=== PATIENT | female | born 1955 | race Caucasian/White ===

== ENCOUNTER 2020-01-26 17:08 | Inpatient (IN) | payer MEDICARE, SELFPAY ==
--- NOTE | 2020-01-26 | CT_ITS ---
EXAMINATION: CT HEAD WITH/WITHOUT CONTRAST CLINICAL INFORMATION: Altered mental status COMPARISON: CT head 10/14/2008 TECHNIQUE: Contiguous axial imaging was performed from the skull base to vertex before and after the administration of 85 mL of Omnipaque [address] examination was performed using dose optimization techniques as appropriate, variously including the following: *Automated exposure control *Adjustment of mA and/or kV according to patient size (this includes techniques or standardized protocols for targeted exams where dose is matched to indication/reason for exam; i.e. extremities or head) *Use of iterative reconstruction technique DLP: 812.43+812.43 mGy-cm FINDINGS: There is no evidence of acute intracranial hemorrhage or territorial infarction. No abnormal mass effect or midline shift is seen. Montes to white matter differentiation is well preserved. No extra-axial fluid collections are identified. There is no abnormal enhancement. The ventricles are normal in size. There is no abnormal attenuation within the brain parenchyma. The osseous structures and soft tissues are normal. The mastoid air cells and visualized portions of the paranasal sinuses are well aerated. IMPRESSION: No acute intracranial pathology.
--- NOTE | 2020-01-26 | CT_ITS ---
EXAMINATION: CT CHEST WITH CONTRAST CLINICAL INFORMATION: Weight loss. Smoker. Altered mental status. COMPARISON: None TECHNIQUE: Multidetector volumetric CT imaging of the chest was obtained after the administration of 85 mL of Omnipaque 350 intravenous contrast without immediate adverse reactions. Axial MIP volume rendering provided. Sagittal and coronal reformatted images were obtained. This CT examination was performed using dose optimization techniques as appropriate, variously including the following: *Automated exposure control *Adjustment of mA and/or kV according to patient size (this includes techniques or standardized protocols for targeted exams where dose is matched to indication/reason for exam; i.e. extremities or head) *Use of iterative reconstruction technique DLP: 193.37 mGy-cm FINDINGS: LUNGS: Moderate centrilobular emphysematous change of lungs mostly affecting the upper lobes. There is mild bronchiectasis and architectural distortion primarily affecting the upper lobes. There is no acute infiltrate. No interstitial or groundglass opacity. No suspicious lesion or nodule. MEDIASTINUM: There is no mediastinal mass or significant lymphadenopathy. There is a small volume of vascular calcifications of aorta. No aneurysm or dissection of aorta. The heart size is normal. There is no pericardial effusion. Central pulmonary arteries well opacified with no evidence of central pulmonary emboli. PLEURA: There is no pleural effusion. No pleural mass or thickening. AXILLA: No lymphadenopathy. UPPER ABDOMEN: Degenerative glands are normal. Mild low-attenuation of liver parenchyma due to fatty change. No focal lesions in the visualized portions of liver, spleen, pancreas or kidneys. OSSEOUS STRUCTURES: Unremarkable. IMPRESSION: No acute abnormality of the chest. There is moderate emphysematous change of lungs.
--- NOTE | 2020-01-26 | ECG_ITS ---
Test Reason : AMS Blood Pressure : / mmHG Vent. 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 rate has decreased BY [address] now depressed in Anterior leads T wave inversion now evident in Anterolateral leads Referred By: Mario Kohler Electronically Signed By:ZACH LAWTON
[2020-01-26 17:18] VITALS: BP 147/65; PULSE 61; RESP 14; TEMP 36.9; O2SAT 95; BMI 21.3
--- NOTE | 2020-01-26 17:44 | ED.AMS ---
HPI - Altered Mental Status General Chief Complaint: Altered Mental Status <Lili Theodore NP - Last Filed: 01/27/20 02:22> Stated Complaint: ams <Lili Theodore NP - Last Filed: 01/27/20 02:22> Time Seen by Provider: 01/26/20 17:27 <Lili Theodore NP - Last Filed: 01/27/20 02:22> Source: family <Lili Theodore NP - Last Filed: 01/27/20 02:22> Mode of arrival: ambulatory <Lili Theodore NP - Last Filed: 01/27/20 02:22> Limitations: altered mental status <Lili Theodore NP - Last Filed: 01/27/20 02:22> History of Present Illness HPI narrative: 64-year-old female presents with her granddaughter for altered mental status. Granddaughter states that over the past week patient has forgotten where she lives, tries to go outside to use the restroom, has lost weight recently but always has been small. Granddaughter had noted that patient's daily habits have changed, patient drinks Coca-Cola every day for decades and over the past week patient told granddaughter she has never had Coca-Cola Before. Patient is a very heavy smoker 2-3 packs per day for many years, has not been taking her medications on a regular basis, and is answering questions politely but not accurately. Patient does not describe any chest pain or pressure, palpitations, shortness breath, abdominal pain, abdominal distention, dysuria, hematuria, dizziness, lightheadedness, nausea, vomiting, fevers or chills. <Lili Theodore NP - Last Filed: 01/27/20 02:22> Related Data Home Medications: Home Medications Medication Instructions Recorded Confirmed albuterol sulfate [Ventolin HFA] 2 puff INHALATION QID PRN 01/27/20 01/27/20 clonazepam 0.5 mg PO TID 01/27/20 01/27/20 clotrimazole-betamethasone 1 applic TOPICAL BID 01/27/20 01/27/20 [Lotrisone] diltiazem HCl 300 mg PO DAILY 01/27/20 01/27/20 fluoxetine 20 mg PO DAILY 01/27/20 01/27/20 fluticasone propionate [Flonase] 2 spray INTRANASAL DAILY 01/27/20 01/27/20 gemfibrozil 600 mg PO DAILY 01/27/20 01/27/20 naloxone 4 mg INTRANASAL Q2M PRN 01/27/20 01/27/20 nitroglycerin 0.4 mg SUBLINGUAL Q5M PRN 01/27/20 01/27/20 omeprazole 20 mg PO DAILY 01/27/20 01/27/20 oxycodone 15 mg PO 5XD PRN 01/27/20 01/27/20 pravastatin 80 mg PO DAILY 01/27/20 01/27/20 <Lili Theodore NP - Last Filed: 01/27/20 02:22> Allergies/Adverse Reactions: Allergies Allergy/AdvReac Type Severity Reaction Status Date / Time No Known Allergies Allergy Unverified 01/09/20 15:37 [No Known Allergies*] <KRYSTIN Salcedo Last Filed: 01/27/20 02:22> Review of Systems Review of Systems: Yes all other systems are reviewed and are negative <Lili Theodore NP - Last Filed: 01/27/20 02:22> Constitutional: Constitutional: Denies chills, Denies frequent falls, Denies headache(s), Reports lethargy, Reports malaise, Denies night sweats and Reports poor appetite <KRYSTIN Salcedo Last Filed: 01/27/20 02:22> Eyes: Eyes: Denies blurry vision and Denies other visual disturbances <Lili Theodore NP - Last Filed: 01/27/20 02:22> ENT: Reports system reviewed and no additional complaints, except as documented and Denies headache(s) <Lili Theodore NP - Last Filed: 01/27/20 02:22> Cardiovascular: Cardiovascular: Reports no additional cardiovascular complaints, Denies chest pain, Denies chest pain at rest, Denies chest pain with activity, Denies diaphoresis, Denies irregular heart rhythm and Denies dyspnea <KRYSTIN Salcedo Last Filed: 01/27/20 02:22> Respiratory: Respiratory: Denies chest congestion, Reports cough, Denies pain on inspiration, Denies dyspnea, Denies stridor and Reports wheezing <Candy Ewelina, DIRECTOR IT PROJECT - Last Filed: 01/27/20 02:22> Gastrointestinal: Gastrointestinal: Reports no additional gastrointestinal complaints, Denies melena, Denies diarrhea, Denies nausea and Denies vomiting <Candy Eweilna, DIRECTOR [employer] PROJECT - Last Filed: 01/27/20 02:22> Genitourinary: Genitourinary: Reports no additional female genitourinary complaints <Candy Ewelina, DIRECTOR IT PROJECT - Last Filed: 01/27/20 02:22> Musculoskeletal: Musculoskeletal: Reports no additional musculoskeletal complaints <Candy Ewelina, DIRECTOR [employer] PROJECT - Last Filed: 01/27/20 02:22> Integumentary/Breasts: Skin/Breast: Reports system reviewed and no additional complaints, except as docu <Candy Ewelina, DIRECTOR [employer] PROJECT - Last Filed: 01/27/20 02:22> Neurologic: Reports behavioral changes, Reports confusion, Denies frequent falls, Denies headache(s) and Reports memory loss <Candy Ewelina, DIRECTOR [employer] PRO[employer] - Last Filed: 01/27/20 02:22> Psychiatric: Psychiatric: Reports behavioral changes, Reports confusion and Reports memory loss <Candy Ewelina, DIRECTOR [employer] PRO[employer] - Last Filed: 01/27/20 02:22> Endocrine: Endocrine: Reports no additional endocrine complaints <Candy Ewelina, DIRECTOR [employer] PRO[employer] - Last Filed: 01/27/20 02:22> Hematologic/Lymphatic: Hematologic/Lymphatic: Reports no additional hematologic/lymphatic complaints <Candy Ewelina, DIRECTOR IT PROJECT - Last Filed: 01/27/20 02:22> Allergic/Immunologic: Allergic/Immunologic: Reports wheezing <Candy Ewelina, DIRECTOR IT PROJECT - Last Filed: 01/27/20 02:22> [facility] Past Medical History Medical History: Medical History Anxiety COPD (chronic obstructive pulmonary disease) Hyperlipidemia Hypertension Opiate abuse, continuous <Candy Ewelina, DIRECTOR [employer] PRO[employer] - Last Filed: 01/27/20 02:22> Social History Social History: Social History Alcohol intake: never Smoking Status: Current every day smoker Tobacco Type: Cigarette Smoked in Last 30 Days: Yes Patient Interested in Nicotine Replacement: No Patient Given Instructions on How to Stop Smoking: No Second Hand Smoke Exposure: No Use of substances other than those prescribed or required for medical reasons: No Advance Directives: No Advance Directives Information Provided: Yes Advance Directives on File: No service: No Current occupational status: unemployed <Lili Theodore NP - Last Filed: 01/27/20 02:22> Physical Exam Vital Signs and I&O and Narrative: Vital Signs and I&O: Vital Signs Temp 97.2 F 01/27/20 19:48 Pulse 62 01/27/20 19:48 Resp 18 01/27/20 19:48 BP 154/87 H 01/27/20 19:48 Pulse Ox 97 01/27/20 19:48 Body Mass Index 21.3 <Lili Theodore NP - Last Filed: 01/27/20 02:22> Vital Signs and I&O: Vital Signs Temp 97.2 F 01/27/20 19:48 Pulse 62 01/27/20 19:48 Resp 18 01/27/20 19:48 BP 154/87 H 01/27/20 19:48 Pulse Ox 97 01/27/20 19:48 Body Mass Index 21.3 <Orion Marvin DO - Last Filed: 01/27/20 20:25> Const: General: cooperative, no acute distress, alert, awake, Physically active and confusion <Lili Theodore NP - Last Filed: 01/27/20 02:22> Nutritional Appearance: underweight <Lili Theodore NP - Last Filed: 01/27/20 02:22> Orientation/consciousness: oriented to person and confusion <Lili Theodore NP - Last Filed: 01/27/20 02:22> HENMT: Head: Yes normal to inspection <Lili Theodore NP - Last Filed: 01/27/20 02:22> Ears: hearing grossly normal bilaterally <Lili Theodore NP - Last Filed: 01/27/20 02:22> General nose exam: Normal external nose present <Lili Theodore NP - Last Filed: 01/27/20 02:22> Face and sinus: Yes normal facial exam <Lili Theodore NP - Last Filed: 01/27/20 02:22> Mouth: Normal oral and palatal mucosa present <Lili Theodore DIRECTOR [employer] PRO[employer] - Last Filed: 01/27/20 02:22> Teeth and gingiva: other ( No dentition) <Lili Theodore DIRECTOR [employer] PRO[employer] - Last Filed: 01/27/20 02:22> Throat: Yes posterior oropharynx normal <Lili Theodore DIRECTOR [employer] PRO[employer] - Last Filed: 01/27/20 02:22> Eyes: General: appearance normal, both eyes and all related structures <Lili Theodore DIRECTOR [employer] PRO[employer] - Last Filed: 01/27/20 02:22> Eyelids: Yes eyelids normal <Lili Theodore DIRECTOR [employer] - Last Filed: 01/27/20 02:22> Conjunctivae: conjunctivae normal <Lili Theodore DIRECTOR [employer] PRO[employer] - Last Filed: 01/27/20 02:22> Sclerae: sclerae normal <Lili Theodore DIRECTOR [employer] PRO[employer] - Last Filed: 01/27/20 02:22> Corneas: corneas normal <Lili Theodore DIRECTOR [employer] PRO[employer] - Last Filed: 01/27/20 02:22> Pupils: Equal, round and reactive pupils present <Lili Theodore DIRECTOR [employer] - Last Filed: 01/27/20 02:22> EOM: EOMs intact bilaterally <Lili Theodore DIRECTOR [employer] - Last Filed: 01/27/20 02:22> Neck: Neck: Yes normal visual inspection, Yes full ROM, Yes no lymphadenopathy, Yes no meningeal signs, Yes trachea midline and Yes supple <Lili Theodore DIRECTOR [employer] - Last Filed: 01/27/20 02:22> Chest: Chest palpation & inspection: normal inspection of the chest <Lili Theodore DIRECTOR [employer] - Last Filed: 01/27/20 02:22> Resp: Effort & Inspection: normal respiratory effort, able to speak in complete sentences, audible wheezes and Actively coughing ( consistent with smoker) <Lili Theodore DIRECTOR [employer] - Last Filed: 01/27/20 02:22> Cardio: Jugular venous distension: no JVD <Lili Theodore DIRECTOR [employer] PRO[employer] - Last Filed: 01/27/20 02:22> Rate: regular rate <Lili Theodore DIRECTOR [employer] PROJECT - Last Filed: 01/27/20 02:22> Rhythm: regular rhythm <Lili Theodore DIRECTOR IT PROJECT - Last Filed: 01/27/20 02:22> Heart sounds: S1 normal heart sound present and S2 normal heart sound present <Lili Theodore NP - Last Filed: 01/27/20 02:22> Peripheral pulses: Peripheral pulses 2+ throughout <Lili Theodore DIRECTOR [employer] PRO[employer] - Last Filed: 01/27/20 02:22> GI: Inspection: Yes normal to inspection <Lili Theodore DIRECTOR [employer] PRO[employer] - Last Filed: 01/27/20 02:22> Auscultation: normal bowel sounds <Lili Theodore DIRECTOR IT PROJECT - Last Filed: 01/27/20 02:22> Rectal Exam - Female: deferred <Lili Theodore DIRECTOR [employer] PRO[employer] - Last Filed: 01/27/20 02:22> : General: Yes no CVA tenderness <Lili Theodore DIRECTOR IT PRO[employer] - Last Filed: 01/27/20 02:22> Back/Spine/Pelvis: Back: no CVA tenderness <Lili Theodore NP - Last Filed: 01/27/20 02:22> Thoracic/Lumbar Spine: thoracic and lumbar spine normal to inspection <Lili Theodore DIRECTOR IT PRO[employer] - Last Filed: 01/27/20 02:22> Skin: General skin exam: no rashes or lesions noted <Lili Theodore DIRECTOR IT PROJECT - Last Filed: 01/27/20 02:22> Neuro: General: oriented to person, gait normal, moves all extremities, no meningeal signs and confusion <Lili Theodore DIRECTOR [employer] PROJECT - Last Filed: 01/27/20 02:22> Cranial nerves: Yes CN's II-XII intact bilaterally, Yes Facial sensation intact/muscles of mastication intact, Yes Intact sense of smell present, Yes Equal, round and reactive pupils present, Yes Bilaterally intact EOM present, Yes Nystagmus not present and Yes Midline tongue present <Lili Theodore DIRECTOR IT PRO[employer] - Last Filed: 01/27/20 02:22> Gait exam (Neuro): Normal gait present <Lili Theodore NP - Last Filed: 01/27/20 02:22> Motor exam (neuro): 5/5 motor strength present throughout <Lili Theodore DIRECTOR IT PRO[employer] - Last Filed: 01/27/20 02:22> Extrem: General: Yes normal to inspection <Lili TheodoreKRYSTIN - Last Filed: 01/27/20 02:22> Psych: Appearance: grossly normal and well kempt <Lili TheodoreKRYSTIN - Last Filed: 01/27/20 02:22> Speech and movement: Normal speech and movement present <Lili TheodoreKRYSTIN - Last Filed: 01/27/20 02:22> Affect: normal affect <Lili TheodoreKRYSTIN - Last Filed: 01/27/20 02:22> Attitude: cooperative <Lili TheodoreKRYSTIN - Last Filed: 01/27/20 02:22> Course Reevaluation(s) Reevaluation #1: CBC is within normal limits, chemistries shows hypokalemia at 3.0, we will replete with Klor-Con 40 mEq. <Lili TheodoreKRYSTIN - Last Filed: 01/27/20 02:22> Time: 18:51 <Lili TheodoreKRYSTIN - Last Filed: 01/27/20 02:22> Reevaluation #2: EKG earlier shows T-wave abnormalities, after potassium repletion we did repeat the EKG which shows sinus Johnson at 55 beats per minute T-wave changes are not as evident. We will repeat BMP and troponin. This case was discussed with Dr. Jaxson Kohler. Patient will be admitted for observation. <Lili TheodoreKRYSTIN - Last Filed: 01/27/20 02:22> Time: 22:35 <Lili TheodoreKRYSTIN - Last Filed: 01/27/20 02:22> MDM - Altered Mental Status Lab Data Result diagrams: : 01/26/20 18:11 01/26/20 22:40 <Lili TheodoreKRYSTIN - Last Filed: 01/27/20 02:22> Labs: Lab Results 01/26/20 01/26/20 01/26/20 Range/Units 18:11 18:11 18:11 WBC 10.2 (4.8-10.8) X10*3/uL RBC 4.36 (4.20-5.50) X10*6/uL Hgb 13.3 (12.0-16.0) g/dl Hct 39.9 (37-47) % MCV 91.5 (80-98) fL MCH 30.5 (27.0-33.0) pg MCHC 33.3 (31.0-35.0) g/dl RDW 12.8 (11.0-16.0) % Plt Count 332 (160-400) X10*3/uL MPV 9.1 L (9.4-12.3) fL Immature Gran % (Auto) 0.2 (0.0-0.4) % Neut % (Auto) 68.9 (45-73) % Lymph % (Auto) 23.5 (20-40) % [place] % (Auto) 7.0 (2-11) % Eos % (Auto) 0.2 (0-4) % Baso % (Auto) 0.2 (0-2) % Neut # (Auto) 7.1 (2.0-8.3) X10*3/uL Lymph # (Auto) 2.4 (1.2-4.9) X10*3/uL [place] # (Auto) 0.7 (0.1-1.2) X10*3/uL Eos # (Auto) 0.0 (0.0-0.4) X10*3/uL Baso # (Auto) 0.0 (0.0-0.2) X10*3/uL Abs Immat Gran (auto) 0.02 (0.00-0.03) X10*3/uL Absolute Nucleated RBC 0.000 (0.0-0.012) X10*3/uL Nucleated RBC % (auto) 0.0 (0.0-0.2) /100WBC PT (10.8-13.0) SEC INR (0.9-1.1) Sodium 139 (135-145) mmol/L Potassium 3.0 L (3.3-5.1) mmol/l Chloride 107 (96-108) mmol/L Carbon Dioxide 24 (22-29) mmol/L Anion Gap 11 L (12-20) BUN 9 (9-16) mg/dL Creatinine 0.64 (0.5-1.4) mg/dL Estim Creat Clear Calc 65.5 Estimated GFR > 60 POC Glucose (60-115) mg/dL Random Glucose 102 (60-115) mg/dL Lactic Acid 0.7 (0.5-2.0) mmol/L Calcium 9.2 (8.4-10.2) mg/dL Total Bilirubin (0.0-1.0) mg/dL Direct Bilirubin (0.0-0.5) mg/dL AST (5-31) U/L ALT (0-31) U/L Alkaline Phosphatase (39-117) U/L Troponin I High Sens (<3.5-17.0) ng/L Total Protein (6.5-8.0) g/dL Albumin (3.5-5.0) g/dL Vitamin B12 (200-900) pg/mL Folate (> or = 4.0) ng/mL TSH (0.32-4.0) mIU/mL Urine Color Urine Appearance Urine pH (5.0-8.0) Ur Specific Bracey (1.005-1.025) Urine Protein (NEG-TRACE) MG/DL Urine Glucose (UA) (NEG) MG/DL Urine Ketones (NEG) MG/DL Urine Blood (NEG) Urine Nitrite (NEG) Ur Leukocyte Esterase (NEG) Salicylates < 5.0 L (15-30) mg/dL Urine Opiates Screen (Not Detect) Acetaminophen (<30) mcg/mL Ur Barbiturates Screen (Not Detect) Ur Phencyclidine Scrn (Not Detect) Ur Amphetamines Screen (Not Detect) U Benzodiazepines Scrn (Not Detect) Urine Cocaine Screen (Not Detect) U Marijuana (THC) Screen (Not Detect) Ethyl Alcohol mg/dL T.pallidum Ab (EIA) (Nonreactive) 01/26/20 01/26/20 01/26/20 Range/Units 18:11 18:11 18:12 WBC (4.8-10.8) X10*3/uL RBC (4.20-5.50) X10*6/uL Hgb (12.0-16.0) g/dl Hct (37-47) % MCV (80-98) fL MCH (27.0-33.0) pg MCHC (31.0-35.0) g/dl RDW (11.0-16.0) % Plt Count (160-400) X10*3/uL MPV (9.4-12.3) fL Immature Gran % (Auto) (0.0-0.4) % Neut % (Auto) (45-73) % Lymph % (Auto) (20-40) % [place] % (Auto) (2-11) % Eos % (Auto) (0-4) % Baso % (Auto) (0-2) % Neut # (Auto) (2.0-8.3) X10*3/uL Lymph # (Auto) (1.2-4.9) X10*3/uL [place] # (Auto) (0.1-1.2) X10*3/uL Eos # (Auto) (0.0-0.4) X10*3/uL Baso # (Auto) (0.0-0.2) X10*3/uL Abs Immat Gran (auto) (0.00-0.03) X10*3/uL Absolute Nucleated RBC (0.0-0.012) X10*3/uL Nucleated RBC % (auto) (0.0-0.2) /100WBC PT (10.8-13.0) SEC INR (0.9-1.1) Sodium (135-145) mmol/L Potassium (3.3-5.1) mmol/l Chloride (96-108) mmol/L Carbon Dioxide (22-29) mmol/L Anion Gap (12-20) BUN (9-16) mg/dL Creatinine (0.5-1.4) mg/dL Estim Creat Clear Calc Estimated GFR POC Glucose (60-115) mg/dL Random Glucose (60-115) mg/dL Lactic Acid (0.5-2.0) mmol/L Calcium (8.4-10.2) mg/dL Total Bilirubin (0.0-1.0) mg/dL Direct Bilirubin (0.0-0.5) mg/dL AST (5-31) U/L ALT (0-31) U/L Alkaline Phosphatase (39-117) U/L Troponin I High Sens 3.7 (<3.5-17.0) ng/L Total Protein (6.5-8.0) g/dL Albumin (3.5-5.0) g/dL Vitamin B12 (200-900) pg/mL Folate (> or = 4.0) ng/mL TSH (0.32-4.0) mIU/mL Urine Color Urine Appearance Urine pH (5.0-8.0) Ur Specific [place] (1.005-1.025) Urine Protein (NEG-TRACE) MG/DL Urine Glucose (UA) (NEG) MG/DL Urine Ketones (NEG) MG/DL Urine Blood (NEG) Urine Nitrite (NEG) Ur Leukocyte Esterase (NEG) Salicylates (15-30) mg/dL Urine Opiates Screen (Not Detect) Acetaminophen < 1 (<30) mcg/mL Ur Barbiturates Screen (Not Detect) Ur Phencyclidine Scrn (Not Detect) Ur Amphetamines Screen (Not Detect) U Benzodiazepines Scrn (Not Detect) Urine Cocaine Screen (Not Detect) U Marijuana (THC) Screen (Not Detect) Ethyl Alcohol < 10 mg/dL T.pallidum Ab (EIA) (Nonreactive) 01/26/20 01/26/20 01/26/20 Range/Units 18:38 18:38 18:42 WBC (4.8-10.8) X10*3/uL RBC (4.20-5.50) X10*6/uL Hgb (12.0-16.0) g/dl Hct (37-47) % MCV (80-98) fL MCH (27.0-33.0) pg MCHC (31.0-35.0) g/dl RDW (11.0-16.0) % Plt Count (160-400) X10*3/uL MPV (9.4-12.3) fL Immature Gran % (Auto) (0.0-0.4) % Neut % (Auto) (45-73) % Lymph % (Auto) (20-40) % [place] % (Auto) (2-11) % Eos % (Auto) (0-4) % Baso % (Auto) (0-2) % Neut # (Auto) (2.0-8.3) X10*3/uL Lymph # (Auto) (1.2-4.9) X10*3/uL [place] # (Auto) (0.1-1.2) X10*3/uL Eos # (Auto) (0.0-0.4) X10*3/uL Baso # (Auto) (0.0-0.2) X10*3/uL Abs Immat Gran (auto) (0.00-0.03) X10*3/uL Absolute Nucleated RBC (0.0-0.012) X10*3/uL Nucleated RBC % (auto) (0.0-0.2) /100WBC PT 12.0 (10.8-13.0) SEC INR 1.0 (0.9-1.1) Sodium (135-145) mmol/L Potassium (3.3-5.1) mmol/l Chloride (96-108) mmol/L Carbon Dioxide (22-29) mmol/L Anion Gap (12-20) BUN (9-16) mg/dL Creatinine (0.5-1.4) mg/dL Estim Creat Clear Calc Estimated GFR POC Glucose 95 (60-115) mg/dL Random Glucose (60-115) mg/dL Lactic Acid (0.5-2.0) mmol/L Calcium (8.4-10.2) mg/dL Total Bilirubin (0.0-1.0) mg/dL Direct Bilirubin (0.0-0.5) mg/dL AST (5-31) U/L ALT (0-31) U/L Alkaline Phosphatase (39-117) U/L Troponin I High Sens (<3.5-17.0) ng/L Total Protein (6.5-8.0) g/dL Albumin (3.5-5.0) g/dL Vitamin B12 (200-900) pg/mL Folate (> or = 4.0) ng/mL TSH 0.76 (0.32-4.0) mIU/mL Urine Color Urine Appearance Urine pH (5.0-8.0) Ur Specific [place] (1.005-1.025) Urine Protein (NEG-TRACE) MG/DL Urine Glucose (UA) (NEG) MG/DL Urine Ketones (NEG) MG/DL Urine Blood (NEG) Urine Nitrite (NEG) Ur Leukocyte Esterase (NEG) Salicylates (15-30) mg/dL Urine Opiates Screen (Not Detect) Acetaminophen (<30) mcg/mL Ur Barbiturates Screen (Not Detect) Ur Phencyclidine Scrn (Not Detect) Ur Amphetamines Screen (Not Detect) U Benzodiazepines Scrn (Not Detect) Urine Cocaine Screen (Not Detect) U Marijuana (THC) Screen (Not Detect) Ethyl Alcohol mg/dL T.pallidum Ab (EIA) (Nonreactive) 01/26/20 01/26/20 01/26/20 Range/Units 21:44 21:44 22:40 WBC (4.8-10.8) X10*3/uL RBC (4.20-5.50) X10*6/uL Hgb (12.0-16.0) g/dl Hct (37-47) % MCV (80-98) fL MCH (27.0-33.0) pg MCHC (31.0-35.0) g/dl RDW (11.0-16.0) % Plt Count (160-400) X10*3/uL MPV (9.4-12.3) fL Immature Gran % (Auto) (0.0-0.4) % Neut % (Auto) (45-73) % Lymph % (Auto) (20-40) % [place] % (Auto) (2-11) % Eos % (Auto) (0-4) % Baso % (Auto) (0-2) % Neut # (Auto) (2.0-8.3) X10*3/uL Lymph # (Auto) (1.2-4.9) X10*3/uL [place] # (Auto) (0.1-1.2) X10*3/uL Eos # (Auto) (0.0-0.4) X10*3/uL Baso # (Auto) (0.0-0.2) X10*3/uL Abs Immat Gran (auto) (0.00-0.03) X10*3/uL Absolute Nucleated RBC (0.0-0.012) X10*3/uL Nucleated RBC % (auto) (0.0-0.2) /100WBC PT (10.8-13.0) SEC INR (0.9-1.1) Sodium 139 (135-145) mmol/L Potassium 3.7 D (3.3-5.1) mmol/l Chloride 107 (96-108) mmol/L Carbon Dioxide 23 (22-29) mmol/L Anion Gap 13 (12-20) BUN 7 L (9-16) mg/dL Creatinine 0.63 (0.5-1.4) mg/dL Estim Creat Clear Calc 66.5 Estimated GFR > 60 POC Glucose (60-115) mg/dL Random Glucose 117 H (60-115) mg/dL Lactic Acid (0.5-2.0) mmol/L Calcium 8.8 (8.4-10.2) mg/dL Total Bilirubin 0.3 (0.0-1.0) mg/dL Direct Bilirubin < 0.2 (0.0-0.5) mg/dL AST 13 (5-31) U/L ALT 8 (0-31) U/L Alkaline Phosphatase 95 (39-117) U/L Troponin I High Sens (<3.5-17.0) ng/L Total Protein 6.7 (6.5-8.0) g/dL Albumin 4.1 (3.5-5.0) g/dL Vitamin B12 (200-900) pg/mL Folate (> or = 4.0) ng/mL TSH (0.32-4.0) mIU/mL Urine Color STRAW Urine Appearance CLEAR Urine pH 8.0 (5.0-8.0) Ur Specific [place] <= 1.005 (1.005-1.025) Urine Protein NEG (NEG-TRACE) MG/DL Urine Glucose (UA) NEG (NEG) MG/DL Urine Ketones NEG (NEG) MG/DL Urine Blood NEG (NEG) Urine Nitrite NEG (NEG) Ur Leukocyte Esterase NEG (NEG) Salicylates (15-30) mg/dL Urine Opiates Screen Not Detected (Not Detect) Acetaminophen (<30) mcg/mL Ur Barbiturates Screen Not Detected (Not Detect) Ur Phencyclidine Scrn Not Detected (Not Detect) Ur Amphetamines Screen Not Detected (Not Detect) U Benzodiazepines Scrn Not Detected (Not Detect) Urine Cocaine Screen Not Detected (Not Detect) U Marijuana (THC) Screen Not Detected (Not Detect) Ethyl Alcohol mg/dL T.pallidum Ab (EIA) (Nonreactive) 01/26/20 01/26/20 01/26/20 Range/Units 22:40 22:40 22:40 WBC (4.8-10.8) X10*3/uL RBC (4.20-5.50) X10*6/uL Hgb (12.0-16.0) g/dl Hct (37-47) % MCV (80-98) fL MCH (27.0-33.0) pg MCHC (31.0-35.0) g/dl RDW (11.0-16.0) % Plt Count (160-400) X10*3/uL MPV (9.4-12.3) fL Immature Gran % (Auto) (0.0-0.4) % Neut % (Auto) (45-73) % Lymph % (Auto) (20-40) % [place] % (Auto) (2-11) % Eos % (Auto) (0-4) % Baso % (Auto) (0-2) % Neut # (Auto) (2.0-8.3) X10*3/uL Lymph # (Auto) (1.2-4.9) X10*3/uL [place] # (Auto) (0.1-1.2) X10*3/uL Eos # (Auto) (0.0-0.4) X10*3/uL Baso # (Auto) (0.0-0.2) X10*3/uL Abs Immat Gran (auto) (0.00-0.03) X10*3/uL Absolute Nucleated RBC (0.0-0.012) X10*3/uL Nucleated RBC % (auto) (0.0-0.2) /100WBC PT (10.8-13.0) SEC INR (0.9-1.1) Sodium (135-145) mmol/L Potassium (3.3-5.1) mmol/l Chloride (96-108) mmol/L Carbon Dioxide (22-29) mmol/L Anion Gap (12-20) BUN (9-16) mg/dL Creatinine (0.5-1.4) mg/dL Estim Creat Clear Calc Estimated GFR POC Glucose (60-115) mg/dL Random Glucose (60-115) mg/dL Lactic Acid (0.5-2.0) mmol/L Calcium (8.4-10.2) mg/dL Total Bilirubin (0.0-1.0) mg/dL Direct Bilirubin (0.0-0.5) mg/dL AST (5-31) U/L ALT (0-31) U/L Alkaline Phosphatase (39-117) U/L Troponin I High Sens 4.8 (<3.5-17.0) ng/L Total Protein (6.5-8.0) g/dL Albumin (3.5-5.0) g/dL Vitamin B12 226 (200-900) pg/mL Folate 9.4 (> or = 4.0) ng/mL TSH (0.32-4.0) mIU/mL Urine Color Urine Appearance Urine pH (5.0-8.0) Ur Specific [place] (1.005-1.025) Urine Protein (NEG-TRACE) MG/DL Urine Glucose (UA) (NEG) MG/DL Urine Ketones (NEG) MG/DL Urine Blood (NEG) Urine Nitrite (NEG) Ur Leukocyte Esterase (NEG) Salicylates (15-30) mg/dL Urine Opiates Screen (Not Detect) Acetaminophen (<30) mcg/mL Ur Barbiturates Screen (Not Detect) Ur Phencyclidine Scrn (Not Detect) Ur Amphetamines Screen (Not Detect) U Benzodiazepines Scrn (Not Detect) Urine Cocaine Screen (Not Detect) U Marijuana (THC) Screen (Not Detect) Ethyl Alcohol mg/dL T.pallidum Ab (EIA) Nonreactive (Nonreactive) <Lili Theodore, KRYSTIN - Last Filed: 01/27/20 02:22> Lab Results 01/26/20 01/26/20 01/26/20 Range/Units 18:11 18:11 18:11 WBC 10.2 (4.8-10.8) X10*3/uL RBC 4.36 (4.20-5.50) X10*6/uL Hgb 13.3 (12.0-16.0) g/dl Hct 39.9 (37-47) % MCV 91.5 (80-98) fL MCH 30.5 (27.0-33.0) pg MCHC 33.3 (31.0-35.0) g/dl RDW 12.8 (11.0-16.0) % Plt Count 332 (160-400) X10*3/uL MPV 9.1 L (9.4-12.3) fL Immature Gran % (Auto) 0.2 (0.0-0.4) % Neut % (Auto) 68.9 (45-73) % Lymph % (Auto) 23.5 (20-40) % [place] % (Auto) 7.0 (2-11) % Eos % (Auto) 0.2 (0-4) % Baso % (Auto) 0.2 (0-2) % Neut # (Auto) 7.1 (2.0-8.3) X10*3/uL Lymph # (Auto) 2.4 (1.2-4.9) X10*3/uL [place] # (Auto) 0.7 (0.1-1.2) X10*3/uL Eos # (Auto) 0.0 (0.0-0.4) X10*3/uL Baso # (Auto) 0.0 (0.0-0.2) X10*3/uL Abs Immat Gran (auto) 0.02 (0.00-0.03) X10*3/uL Absolute Nucleated RBC 0.000 (0.0-0.012) X10*3/uL Nucleated RBC % (auto) 0.0 (0.0-0.2) /100WBC PT (10.8-13.0) SEC INR (0.9-1.1) Sodium 139 (135-145) mmol/L Potassium 3.0 L (3.3-5.1) mmol/l Chloride 107 (96-108) mmol/L Carbon Dioxide 24 (22-29) mmol/L Anion Gap 11 L (12-20) BUN 9 (9-16) mg/dL Creatinine 0.64 (0.5-1.4) mg/dL Estim Creat Clear Calc 65.5 Estimated GFR > 60 POC Glucose (60-115) mg/dL Random Glucose 102 (60-115) mg/dL Lactic Acid 0.7 (0.5-2.0) mmol/L Calcium 9.2 (8.4-10.2) mg/dL Total Bilirubin (0.0-1.0) mg/dL Direct Bilirubin (0.0-0.5) mg/dL AST (5-31) U/L ALT (0-31) U/L Alkaline Phosphatase (39-117) U/L Troponin I High Sens (<3.5-17.0) ng/L Total Protein (6.5-8.0) g/dL Albumin (3.5-5.0) g/dL Vitamin B12 (200-900) pg/mL Folate (> or = 4.0) ng/mL TSH (0.32-4.0) mIU/mL Urine Color Urine Appearance Urine pH (5.0-8.0) Ur Specific [place] (1.005-1.025) Urine Protein (NEG-TRACE) MG/DL Urine Glucose (UA) (NEG) MG/DL Urine Ketones (NEG) MG/DL Urine Blood (NEG) Urine Nitrite (NEG) Ur Leukocyte Esterase (NEG) Salicylates < 5.0 L (15-30) mg/dL Urine Opiates Screen (Not Detect) Acetaminophen (<30) mcg/mL Ur Barbiturates Screen (Not Detect) Ur Phencyclidine Scrn (Not Detect) Ur Amphetamines Screen (Not Detect) U Benzodiazepines Scrn (Not Detect) Urine Cocaine Screen (Not Detect) U Marijuana (THC) Screen (Not Detect) Ethyl Alcohol mg/dL T.pallidum Ab (EIA) (Nonreactive) 01/26/20 01/26/20 01/26/20 Range/Units 18:11 18:11 18:12 WBC (4.8-10.8) X10*3/uL RBC (4.20-5.50) X10*6/uL Hgb (12.0-16.0) g/dl Hct (37-47) % MCV (80-98) fL MCH (27.0-33.0) pg MCHC (31.0-35.0) g/dl RDW (11.0-16.0) % Plt Count (160-400) X10*3/uL MPV (9.4-12.3) fL Immature Gran % (Auto) (0.0-0.4) % Neut % (Auto) (45-73) % Lymph % (Auto) (20-40) % [place] % (Auto) (2-11) % Eos % (Auto) (0-4) % Baso % (Auto) (0-2) % Neut # (Auto) (2.0-8.3) X10*3/uL Lymph # (Auto) (1.2-4.9) X10*3/uL [place] # (Auto) (0.1-1.2) X10*3/uL Eos # (Auto) (0.0-0.4) X10*3/uL Baso # (Auto) (0.0-0.2) X10*3/uL Abs Immat Gran (auto) (0.00-0.03) X10*3/uL Absolute Nucleated RBC (0.0-0.012) X10*3/uL Nucleated RBC % (auto) (0.0-0.2) /100WBC PT (10.8-13.0) SEC INR (0.9-1.1) Sodium (135-145) mmol/L Potassium (3.3-5.1) mmol/l Chloride (96-108) mmol/L Carbon Dioxide (22-29) mmol/L Anion Gap (12-20) BUN (9-16) mg/dL Creatinine (0.5-1.4) mg/dL Estim Creat Clear Calc Estimated GFR POC Glucose (60-115) mg/dL Random Glucose (60-115) mg/dL Lactic Acid (0.5-2.0) mmol/L Calcium (8.4-10.2) mg/dL Total Bilirubin (0.0-1.0) mg/dL Direct Bilirubin (0.0-0.5) mg/dL AST (5-31) U/L ALT (0-31) U/L Alkaline Phosphatase (39-117) U/L Troponin I High Sens 3.7 (<3.5-17.0) ng/L Total Protein (6.5-8.0) g/dL Albumin (3.5-5.0) g/dL Vitamin B12 (200-900) pg/mL Folate (> or = 4.0) ng/mL TSH (0.32-4.0) mIU/mL Urine Color Urine Appearance Urine pH (5.0-8.0) Ur Specific [place] (1.005-1.025) Urine Protein (NEG-TRACE) MG/DL Urine Glucose (UA) (NEG) MG/DL Urine Ketones (NEG) MG/DL Urine Blood (NEG) Urine Nitrite (NEG) Ur Leukocyte Esterase (NEG) Salicylates (15-30) mg/dL Urine Opiates Screen (Not Detect) Acetaminophen < 1 (<30) mcg/mL Ur Barbiturates Screen (Not Detect) Ur Phencyclidine Scrn (Not Detect) Ur Amphetamines Screen (Not Detect) U Benzodiazepines Scrn (Not Detect) Urine Cocaine Screen (Not Detect) U Marijuana (THC) Screen (Not Detect) Ethyl Alcohol < 10 mg/dL T.pallidum Ab (EIA) (Nonreactive) 01/26/20 01/26/20 01/26/20 Range/Units 18:38 18:38 18:42 WBC (4.8-10.8) X10*3/uL RBC (4.20-5.50) X10*6/uL Hgb (12.0-16.0) g/dl Hct (37-47) % MCV (80-98) fL MCH (27.0-33.0) pg MCHC (31.0-35.0) g/dl RDW (11.0-16.0) % Plt Count (160-400) X10*3/uL MPV (9.4-12.3) fL Immature Gran % (Auto) (0.0-0.4) % Neut % (Auto) (45-73) % Lymph % (Auto) (20-40) % [place] % (Auto) (2-11) % Eos % (Auto) (0-4) % Baso % (Auto) (0-2) % Neut # (Auto) (2.0-8.3) X10*3/uL Lymph # (Auto) (1.2-4.9) X10*3/uL [place] # (Auto) (0.1-1.2) X10*3/uL Eos # (Auto) (0.0-0.4) X10*3/uL Baso # (Auto) (0.0-0.2) X10*3/uL Abs Immat Gran (auto) (0.00-0.03) X10*3/uL Absolute Nucleated RBC (0.0-0.012) X10*3/uL Nucleated RBC % (auto) (0.0-0.2) /100WBC PT 12.0 (10.8-13.0) SEC INR 1.0 (0.9-1.1) Sodium (135-145) mmol/L Potassium (3.3-5.1) mmol/l Chloride (96-108) mmol/L Carbon Dioxide (22-29) mmol/L Anion Gap (12-20) BUN (9-16) mg/dL Creatinine (0.5-1.4) mg/dL Estim Creat Clear Calc Estimated GFR POC Glucose 95 (60-115) mg/dL Random Glucose (60-115) mg/dL Lactic Acid (0.5-2.0) mmol/L Calcium (8.4-10.2) mg/dL Total Bilirubin (0.0-1.0) mg/dL Direct Bilirubin (0.0-0.5) mg/dL AST (5-31) U/L ALT (0-31) U/L Alkaline Phosphatase (39-117) U/L Troponin I High Sens (<3.5-17.0) ng/L Total Protein (6.5-8.0) g/dL Albumin (3.5-5.0) g/dL Vitamin B12 (200-900) pg/mL Folate (> or = 4.0) ng/mL TSH 0.76 (0.32-4.0) mIU/mL Urine Color Urine Appearance Urine pH (5.0-8.0) Ur Specific [place] (1.005-1.025) Urine Protein (NEG-TRACE) MG/DL Urine Glucose (UA) (NEG) MG/DL Urine Ketones (NEG) MG/DL Urine Blood (NEG) Urine Nitrite (NEG) Ur Leukocyte Esterase (NEG) Salicylates (15-30) mg/dL Urine Opiates Screen (Not Detect) Acetaminophen (<30) mcg/mL Ur Barbiturates Screen (Not Detect) Ur Phencyclidine Scrn (Not Detect) Ur Amphetamines Screen (Not Detect) U Benzodiazepines Scrn (Not Detect) Urine Cocaine Screen (Not Detect) U Marijuana (THC) Screen (Not Detect) Ethyl Alcohol mg/dL T.pallidum Ab (EIA) (Nonreactive) 01/26/20 01/26/20 01/26/20 Range/Units 21:44 21:44 22:40 WBC (4.8-10.8) X10*3/uL RBC (4.20-5.50) X10*6/uL Hgb (12.0-16.0) g/dl Hct (37-47) % MCV (80-98) fL MCH (27.0-33.0) pg MCHC (31.0-35.0) g/dl RDW (11.0-16.0) % Plt Count (160-400) X10*3/uL MPV (9.4-12.3) fL Immature Gran % (Auto) (0.0-0.4) % Neut % (Auto) (45-73) % Lymph % (Auto) (20-40) % [place] % (Auto) (2-11) % Eos % (Auto) (0-4) % Baso % (Auto) (0-2) % Neut # (Auto) (2.0-8.3) X10*3/uL Lymph # (Auto) (1.2-4.9) X10*3/uL [place] # (Auto) (0.1-1.2) X10*3/uL Eos # (Auto) (0.0-0.4) X10*3/uL Baso # (Auto) (0.0-0.2) X10*3/uL Abs Immat Gran (auto) (0.00-0.03) X10*3/uL Absolute Nucleated RBC (0.0-0.012) X10*3/uL Nucleated RBC % (auto) (0.0-0.2) /100WBC PT (10.8-13.0) SEC INR (0.9-1.1) Sodium 139 (135-145) mmol/L Potassium 3.7 D (3.3-5.1) mmol/l Chloride 107 (96-108) mmol/L Carbon Dioxide 23 (22-29) mmol/L Anion Gap 13 (12-20) BUN 7 L (9-16) mg/dL Creatinine 0.63 (0.5-1.4) mg/dL Estim Creat Clear Calc 66.5 Estimated GFR > 60 POC Glucose (60-115) mg/dL Random Glucose 117 H (60-115) mg/dL Lactic Acid (0.5-2.0) mmol/L Calcium 8.8 (8.4-10.2) mg/dL Total Bilirubin 0.3 (0.0-1.0) mg/dL Direct Bilirubin < 0.2 (0.0-0.5) mg/dL AST 13 (5-31) U/L ALT 8 (0-31) U/L Alkaline Phosphatase 95 (39-117) U/L Troponin I High Sens (<3.5-17.0) ng/L Total Protein 6.7 (6.5-8.0) g/dL Albumin 4.1 (3.5-5.0) g/dL Vitamin B12 (200-900) pg/mL Folate (> or = 4.0) ng/mL TSH (0.32-4.0) mIU/mL Urine Color STRAW Urine Appearance CLEAR Urine pH 8.0 (5.0-8.0) Ur Specific [place] <= 1.005 (1.005-1.025) Urine Protein NEG (NEG-TRACE) MG/DL Urine Glucose (UA) NEG (NEG) MG/DL Urine Ketones NEG (NEG) MG/DL Urine Blood NEG (NEG) Urine Nitrite NEG (NEG) Ur Leukocyte Esterase NEG (NEG) Salicylates (15-30) mg/dL Urine Opiates Screen Not Detected (Not Detect) Acetaminophen (<30) mcg/mL Ur Barbiturates Screen Not Detected (Not Detect) Ur Phencyclidine Scrn Not Detected (Not Detect) Ur Amphetamines Screen Not Detected (Not Detect) U Benzodiazepines Scrn Not Detected (Not Detect) Urine Cocaine Screen Not Detected (Not Detect) U Marijuana (THC) Screen Not Detected (Not Detect) Ethyl Alcohol mg/dL T.pallidum Ab (EIA) (Nonreactive) 01/26/20 01/26/20 01/26/20 Range/Units 22:40 22:40 22:40 WBC (4.8-10.8) X10*3/uL RBC (4.20-5.50) X10*6/uL Hgb (12.0-16.0) g/dl Hct (37-47) % MCV (80-98) fL MCH (27.0-33.0) pg MCHC (31.0-35.0) g/dl RDW (11.0-16.0) % Plt Count (160-400) X10*3/uL MPV (9.4-12.3) fL Immature Gran % (Auto) (0.0-0.4) % Neut % (Auto) (45-73) % Lymph % (Auto) (20-40) % [place] % (Auto) (2-11) % Eos % (Auto) (0-4) % Baso % (Auto) (0-2) % Neut # (Auto) (2.0-8.3) X10*3/uL Lymph # (Auto) (1.2-4.9) X10*3/uL [place] # (Auto) (0.1-1.2) X10*3/uL Eos # (Auto) (0.0-0.4) X10*3/uL Baso # (Auto) (0.0-0.2) X10*3/uL Abs Immat Gran (auto) (0.00-0.03) X10*3/uL Absolute Nucleated RBC (0.0-0.012) X10*3/uL Nucleated RBC % (auto) (0.0-0.2) /100WBC PT (10.8-13.0) SEC INR (0.9-1.1) Sodium (135-145) mmol/L Potassium (3.3-5.1) mmol/l Chloride (96-108) mmol/L Carbon Dioxide (22-29) mmol/L Anion Gap (12-20) BUN (9-16) mg/dL Creatinine (0.5-1.4) mg/dL Estim Creat Clear Calc Estimated GFR POC Glucose (60-115) mg/dL Random Glucose (60-115) mg/dL Lactic Acid (0.5-2.0) mmol/L Calcium (8.4-10.2) mg/dL Total Bilirubin (0.0-1.0) mg/dL Direct Bilirubin (0.0-0.5) mg/dL AST (5-31) U/L ALT (0-31) U/L Alkaline Phosphatase (39-117) U/L Troponin I High Sens 4.8 (<3.5-17.0) ng/L Total Protein (6.5-8.0) g/dL Albumin (3.5-5.0) g/dL Vitamin B12 226 (200-900) pg/mL Folate 9.4 (> or = 4.0) ng/mL TSH (0.32-4.0) mIU/mL Urine Color Urine Appearance Urine pH (5.0-8.0) Ur Specific [place] (1.005-1.025) Urine Protein (NEG-TRACE) MG/DL Urine Glucose (UA) (NEG) MG/DL Urine Ketones (NEG) MG/DL Urine Blood (NEG) Urine Nitrite (NEG) Ur Leukocyte Esterase (NEG) Salicylates (15-30) mg/dL Urine Opiates Screen (Not Detect) Acetaminophen (<30) mcg/mL Ur Barbiturates Screen (Not Detect) Ur Phencyclidine Scrn (Not Detect) Ur Amphetamines Screen (Not Detect) U Benzodiazepines Scrn (Not Detect) Urine Cocaine Screen (Not Detect) U Marijuana (THC) Screen (Not Detect) Ethyl Alcohol mg/dL T.pallidum Ab (EIA) Nonreactive (Nonreactive) <Orion Marvin DO - Last Filed: 01/27/20 20:25> ECG Data ECG #1: Attestation: I personally reviewed and interpreted this ECG as follows: <Lili Theodore NP - Last Filed: 01/27/20 02:22> ECG interpretation date: 01/26/20 <Lili Theodore NP - Last Filed: 01/27/20 02:22> ECG interpretation time: 19:27 <Lili Theodore NP - Last Filed: 01/27/20 02:22> Interpretation: sinus tachycardia 51 beats per minute, ST wave abnormality, MT interval 154, QT 478, QTC 440 <Lili Theodore NP - Last Filed: 01/27/20 02:22> ECG #2: Attestation: I personally reviewed and interpreted this ECG as follows: <Lili Theodore NP - Last Filed: 01/27/20 02:22> ECG interpretation date: 01/26/20 <Lili Theodore NP - Last Filed: 01/27/20 02:22> ECG interpretation time: 02:18 <Lili Theodore NP - Last Filed: 01/27/20 02:22> Interpretation: Sinus bradycardia 55 beats per minute, p.r. interval 138, QTC 442, QTC 422. ST wave changes have improved from prior on January 26, 2020 at 7:27 p.m. <Lili Theodore NP - Last Filed: 01/27/20 02:22> Critical Care Time Critical Care Time Critical Care Time: Yes <Lili Theodore NP - Last Filed: 01/27/20 02:22> Total Critical Care Time: 60 <Lili Theodore NP - Last Filed: 01/27/20 02:22> Attestation: I personally attest to this time spent taking care of this patient <Lili Theodore NP - Last Filed: 01/27/20 02:22> Discharge Plan Discharge Clinical Impression: Hypokalemia Altered mental status Qualifiers: Altered mental status type: disorientation Qualified Code(s): R41.0 - Disorientation, unspecified <Lili Theodore NP - Last Filed: 01/27/20 02:22> Patient Disposition: Admitted As Inpatient <Lili Theodore NP - Last Filed: 01/27/20 02:22> Interventions: Admission Worksheet (ED) Last Done: 01/27/20 02:51 <Lili Theodore NP - Last Filed: 01/27/20 02:22> Discharge Date/Time: 01/27/20 02:30 <Lili Theodore NP - Last Filed: 01/27/20 02:22>
[2020-01-26 18:18] LABS: MANUAL DIFF FLAG NO
[2020-01-26 18:22] LABS: Basophils Percent Auto 0.2 % (0-2); Eosinophils Percent Auto 0.2 % (0-4); Hematocrit 39.9 % (37-47); Hemoglobin 13.3 g/dl (12.0-16.0); Imm Gran Abs Auto 0.02 X10*3/uL (0.00-0.03); Imm Gran Pct Auto 0.2 % (0.0-0.4); Lymphocytes Absolute Auto 2.4 X10*3/uL (1.2-4.9); Lymphocytes Percent Auto 23.5 % (20-40); Mean Corpuscular HGB Conc 33.3 g/dl (31.0-35.0); Mean Corpuscular Hemoglobin 30.5 pg (27.0-33.0); Mean Corpuscular Volume 91.5 fL (80-98); Mean Platelet Volume 9.1 fL (9.4-12.3); Monocytes Absolute Auto 0.7 X10*3/uL (0.1-1.2); Neutrophils Absolute Auto 7.1 X10*3/uL (2.0-8.3); Neutrophils Percent Auto 68.9 % (45-73); Platelet Count 332 X10*3/uL (160-400); Red Blood Count 4.36 X10*6/uL (4.20-5.50); Red Cell Distribution Width 12.8 % (11.0-16.0); White Blood Count 10.2 X10*3/uL (4.8-10.8)
[2020-01-26 18:44] LABS: Ethanol < 10 mg/dL; Lactic Acid 0.7 mmol/L (0.5-2.0)
[2020-01-26 18:46] LABS: Acetaminophen LAB < 1 mcg/mL (<30)
[2020-01-26 18:46] LABS: Anion Gap 11 (12-20); Blood Urea Nitrogen 9 mg/dL (9-16); Calcium 9.2 mg/dL (8.4-10.2); Carbon Dioxide 24 mmol/L (22-29); Chloride 107 mmol/L (96-108); Creatinine Clr Calc Pharmacy 65.5; Estimated Glomerular Filt Rate > 60; Glucose Random 102 mg/dL (60-115); Salicylate < 5.0 mg/dL (15-30); Sodium 139 mmol/L (135-145)
[2020-01-26 18:48] LABS: Glucose, Whole Blood 95 mg/dL (60-115)
[2020-01-26 19:25] LABS: Thyroid Stimulating Hormone 0.76 mIU/mL (0.32-4.0)
[2020-01-26] MEDS: iohexoL 350 MG/ML 100 ML INFUS..BTL IV (19:32)
[2020-01-26 20:21] LABS: Troponin-I High Sensitivity 3.7 ng/L (<3.5-17.0)
--- NOTE | 2020-01-26 20:35 | PC.NURSE ---
Patient ambulated to bathroom with RN. Steady gait. Denies dizziness.
--- NOTE | 2020-01-26 21:16 | PC.NURSE ---
Pending urine collection. Patient continues to state I ma going to go home.
[2020-01-26 21:29] VITALS: BP 139/61; PULSE 56; RESP 16; TEMP 36.6; O2SAT 97
[2020-01-26 21:41] LABS: Glucose Urine UA NEG (NEG); Leukocyte Esterase Urine NEG (NEG); Nitrite Urine NEG (NEG); Specific Gravity - Urine <= 1.005 (1.005-1.025); Urine Blood NEG (NEG); Urine Ketones NEG (NEG); Urine Protein NEG (NEG-TRACE)
[2020-01-26 21:47] LABS: Appearance Urine CLEAR; Color Urine STRAW
[2020-01-26 22:10] LABS: Amphetamine Screen Urine Not Detected (Not Detect); Barbiturates, Urine Not Detected (Not Detect); Benzodiazepines Screen Urine Not Detected (Not Detect); Cannabinoid Screen Urine Not Detected (Not Detect); Cocaine Screen Urine Not Detected (Not Detect); Opiate Screen Urine Not Detected (Not Detect); Phencyclidine Screen Urine Not Detected (Not Detect)
[2020-01-26] MEDS: Acetaminophen 325 MG TABLET 650 MG PO (22:13)
--- NOTE | 2020-01-26 22:23 | PC.NURSE ---
on phone with hospitalist. UA negative as well as tox screen. Patient wandering halls yelling she wants to leave.
--- NOTE | 2020-01-26 22:25 | ECG_ITS ---
Test Reason : REPEAT Blood Pressure : / mmHG Vent. Rate : 055 BPM Atrial Rate : 055 BPM P-R Int : 138 ms QRS Dur : 082 ms QT Int : 442 ms P-R-T Axes : 077 054 075 degrees QTc Int : 422 ms Sinus bradycardia Septal infarct (cited on or before 18-NOV-2002) Abnormal ECG When compared with ECG of 26-MAY-2017 17:32, Questionable change in initial forces of Anterior leads Non-specific change in ST segment in Anterior leads T wave inversion now evident in Anterior leads Referred By: Lili Theodore Electronically Signed By:ZACH LAWTON
[2020-01-26 23:27] LABS: Anion Gap 13 (12-20); Blood Urea Nitrogen 7 mg/dL (9-16); Calcium 8.8 mg/dL (8.4-10.2); Carbon Dioxide 23 mmol/L (22-29); Chloride 107 mmol/L (96-108); Creatinine Clr Calc Pharmacy 66.5; Estimated Glomerular Filt Rate > 60; Glucose Random 117 mg/dL (60-115); Potassium 3.7 mmol/l (3.3-5.1); Sodium 139 mmol/L (135-145)
[2020-01-26 23:28] LABS: Troponin-I High Sensitivity 4.8 ng/L (<3.5-17.0)
[2020-01-27] VITALS (8 sets, daily range): BP systolic 124–154; BP diastolic 70–88; PULSE 55–76; RESP 16–18; TEMP 36.2–37; O2SAT 94–98; BMI 20.5
--- NOTE | 2020-01-27 | CT_ITS ---
EXAMINATION: CT ABDOMEN AND PELVIS WITHOUT CONTRAST CLINICAL INFORMATION: Weight loss and confusion COMPARISON: None TECHNIQUE: Multidetector volumetric imaging was performed from the superior aspect of the liver through the pubic symphysis. Sagittal and coronal reformatted images were obtained on the technologist's workstation. This CT examination was performed using dose optimization techniques as appropriate, variously including the following: *Automated exposure control *Adjustment of mA and/or kV according to patient size (this includes techniques or standardized protocols for targeted exams where dose is matched to indication/reason for exam; i.e. extremities or head) *Use of iterative reconstruction technique DLP: 333 mGy-cm FINDINGS: LUNG BASES: The visualized lung bases are unremarkable. LIVER, GALLBLADDER, AND BILIARY TREE: The liver is normal in size, shape, and attenuation. No focal hepatic lesion or biliary ductal dilatation is present. The gallbladder is unremarkable with no evidence of radiopaque gallstones, gallbladder wall thickening, or obvious pericholecystic inflammatory changes. PANCREAS: Unremarkable. SPLEEN: Unremarkable. ADRENAL GLANDS: Unremarkable. KIDNEYS AND URETERS: There is excreted contrast in the collecting systems of the kidneys from chest CT with IV contrast from yesterday. This lower sensitivity for detection of small stones. There is a 2 to 3 mm stone in the lower pole of the right kidney. There is question of a 1 to 2 mm stone in the lower pole of the left kidney. There are 2 renal cysts, largest measuring 2.5 cm. BLADDER: There is excreted contrast in the gallbladder. The bladder is otherwise unremarkable. GASTROINTESTINAL TRACT: There is diverticulosis of the colon. There is wall thickening of the sigmoid colon probably related to diverticular disease. Small and large bowel is otherwise unremarkable. The appendix is not identified. There is apparent wall thickening of the proximal stomach. This may be artifactual due to underdistention. ABDOMINAL WALL: No significant hernia is appreciated. LYMPH NODES: Normal. VASCULAR: There is evidence of atherosclerotic disease. PELVIC VISCERA: Unremarkable. OSSEOUS STRUCTURES: There is a scoliosis and mild degenerative change of of the spine. IMPRESSION: Diverticulosis of the colon. There is wall thickening of the sigmoid colon probably related to diverticular disease. There is wall thickening of the proximal stomach. This may be artifactual due to underdistention. Clinical correlation recommended. Bilateral renal cysts. Probable small bilateral renal stones.
--- NOTE | 2020-01-27 | ECG_ITS ---
Test Reason : ELECTOLYTE ABNORM Blood Pressure : / mmHG Vent. Rate : 060 BPM Atrial Rate : 060 BPM P-R Int : 134 ms QRS Dur : 084 ms QT Int : 448 ms P-R-T Axes : 079 055 107 degrees QTc Int : 448 ms Normal sinus rhythm Septal infarct (cited on or before 18-NOV-2002) ST & T wave abnormality, consider anterolateral ischemia Abnormal ECG When compared with ECG of 26-JAN-2020 22:29, T wave inversion more evident in Anterolateral leads Referred By: Mario Kohler Electronically Signed By:ZACH LAWTON
--- NOTE | 2020-01-27 00:28 | PM.IMHP ---
History of Present Illness Date of Service: 01/27/20 Chief Complaint: AMS 64 y/o female with an extensive PMHX who presented from home due to hallucinations. Per history provided by the patient, for the past several days has been having on and off episodes of hallucinations where she see things that are not there . Patient is not very reliable when giving the medical hx, is alert and oriented to name and age but not place. Upon reviewing the medical records is noted that patient had a previous admission 2 years ago due to acute respiratory failure due to opiate/benzodiazepine overdose. Medications from the prescription monitoring program was checked by ED which shows that patient has continued receiving benzodiazepines and opiates since, prescribed by her PCP. Unknown if patient has a hx of underlying dementia. On presentation to the ED patient's vitals are noted to be stable, no evidence of fever. Sinus bradycardia of 56 but asymptomatic. Utox done is cleared for benzos or opiates. Initial labs showed K of 3.0. EKG done on presentation showed T wave inversion in precordial leads. KCL was replaced by ED and repeat EKG shows now improvement on EKG changes. Decision for admission given. Patient seen and examined at the bedside, AAO2 (name and age but not place). ROS as above otherwise negative. Physical exam unremarkable. PMHX: 1. chornic respiratory failure secondary to COPD on home o2 2. Hx of tak[place]ubo 3. Rheumatoid arthritis 4. chronic opiate dependence / Benzodiazepine abuse 5. anxiety 6. HTN 7. HLD 8. malnutrition Psx: unknown Toxic habits: Benzodiazepine and Opiate dependence, no hx of alcohol abuse or smoking Review of Systems Constitutional: Constitutional: Denies frequent falls and Denies headache(s) ENT: Denies headache(s) Neurologic: Reports behavioral changes, Reports confusion, Denies frequent falls, Denies headache(s), Reports memory loss and Reports other Comments: hallucinations Psychiatric: Psychiatric: Reports behavioral changes, Reports confusion, Reports memory loss and Reports visual hallucinations [facility] Medical History COPD (chronic obstructive pulmonary disease) Functional capacity: independent ambulation Family history: reviewed and not pertinent Social History Alcohol intake: never Smoking Status: Current every day smoker Use of substances other than those prescribed or required for medical reasons: No Advance Directives: No Advance Directives Information Provided: Yes Meds Allergies Allergy/AdvReac Type Severity Reaction Status Date / Time No Known Allergies Allergy Unverified 01/09/20 15:37 [No Known Allergies*] Physical Exam Vital Signs and Narrative: Vital Signs: Last Vital Signs Temp 97.9 F 01/26/20 21:29 Pulse 56 01/26/20 21:29 Resp 16 01/26/20 21:29 BP 139/61 01/26/20 21:29 Pulse Ox 97 01/26/20 21:29 Body Mass Index 21.3 Const: General: cooperative and confusion Orientation/consciousness: oriented to person, oriented to time and confusion HENMT: Head: Yes normal to inspection Eyes: General: appearance normal, both eyes and all related structures Neck: Yes normal visual inspection Chest: Chest palpation & inspection: normal inspection of the chest Resp: Effort & Inspection: normal respiratory effort Cardio: Jugular venous distension: no JVD Heart sounds: S1 normal heart sound present and S2 normal heart sound present GI: Inspection: Yes normal to inspection : General: Yes no CVA tenderness Back/Spine/Pelvis: Back: no CVA tenderness Skin: General skin exam: no rashes or lesions noted Neuro: General: oriented to person, oriented to time and confusion Extrem: General: Yes normal to inspection Psych: Speech and movement: Clear speech present Affect: normal affect Attitude: cooperative Thought content: Hallucination(s) present Results Labs Labs: Laboratory Tests 01/26/20 01/26/20 01/26/20 18:11 18:11 18:11 WBC 10.2 RBC 4.36 Hgb 13.3 Hct 39.9 MCV 91.5 MCH 30.5 MCHC 33.3 RDW 12.8 Plt Count 332 MPV 9.1 L Immature Gran % (Auto) 0.2 Neut % (Auto) 68.9 Lymph % (Auto) 23.5 [place] % (Auto) 7.0 Eos % (Auto) 0.2 Baso % (Auto) 0.2 Neut # (Auto) 7.1 Lymph # (Auto) 2.4 [place] # (Auto) 0.7 Eos # (Auto) 0.0 Baso # (Auto) 0.0 Abs Immat Gran (auto) 0.02 Absolute Nucleated RBC 0.000 Nucleated RBC % (auto) 0.0 PT INR Sodium 139 Potassium 3.0 L Chloride 107 Carbon Dioxide 24 Anion Gap 11 L BUN 9 Creatinine 0.64 Estim Creat Clear Calc 65.5 Estimated GFR > 60 POC Glucose Random Glucose 102 Lactic Acid 0.7 Calcium 9.2 Troponin I High Sens TSH Urine Color Urine Appearance Urine pH Ur Specific [place] Urine Protein Urine Glucose (UA) Urine Ketones Urine Blood Urine Nitrite Ur Leukocyte Esterase Salicylates < 5.0 L Urine Opiates Screen Acetaminophen Ur Barbiturates Screen Ur Phencyclidine Scrn Ur Amphetamines Screen U Benzodiazepines Scrn Urine Cocaine Screen U Marijuana (THC) Screen Ethyl Alcohol 01/26/20 01/26/20 01/26/20 18:11 18:11 18:12 WBC RBC Hgb Hct MCV MCH MCHC RDW Plt Count MPV Immature Gran % (Auto) Neut % (Auto) Lymph % (Auto) [place] % (Auto) Eos % (Auto) Baso % (Auto) Neut # (Auto) Lymph # (Auto) [place] # (Auto) Eos # (Auto) Baso # (Auto) Abs Immat Gran (auto) Absolute Nucleated RBC Nucleated RBC % (auto) PT INR Sodium Potassium Chloride Carbon Dioxide Anion Gap BUN Creatinine Estim Creat Clear Calc Estimated GFR POC Glucose Random Glucose Lactic Acid Calcium Troponin I High Sens 3.7 TSH Urine Color Urine Appearance Urine pH Ur Specific [place] Urine Protein Urine Glucose (UA) Urine Ketones Urine Blood Urine Nitrite Ur Leukocyte Esterase Salicylates Urine Opiates Screen Acetaminophen < 1 Ur Barbiturates Screen Ur Phencyclidine Scrn Ur Amphetamines Screen U Benzodiazepines Scrn Urine Cocaine Screen U Marijuana (THC) Screen Ethyl Alcohol < 10 01/26/20 01/26/20 01/26/20 18:38 18:38 18:42 WBC RBC Hgb Hct MCV MCH MCHC RDW Plt Count MPV Immature Gran % (Auto) Neut % (Auto) Lymph % (Auto) [place] % (Auto) Eos % (Auto) Baso % (Auto) Neut # (Auto) Lymph # (Auto) [place] # (Auto) Eos # (Auto) Baso # (Auto) Abs Immat Gran (auto) Absolute Nucleated RBC Nucleated RBC % (auto) PT 12.0 INR 1.0 Sodium Potassium Chloride Carbon Dioxide Anion Gap BUN Creatinine Estim Creat Clear Calc Estimated GFR POC Glucose 95 Random Glucose Lactic Acid Calcium Troponin I High Sens TSH 0.76 Urine Color Urine Appearance Urine pH Ur Specific [place] Urine Protein Urine Glucose (UA) Urine Ketones Urine Blood Urine Nitrite Ur Leukocyte Esterase Salicylates Urine Opiates Screen Acetaminophen Ur Barbiturates Screen Ur Phencyclidine Scrn Ur Amphetamines Screen U Benzodiazepines Scrn Urine Cocaine Screen U Marijuana (THC) Screen Ethyl Alcohol 01/26/20 01/26/20 01/26/20 21:44 21:44 22:40 WBC RBC Hgb Hct MCV MCH MCHC RDW Plt Count MPV Immature Gran % (Auto) Neut % (Auto) Lymph % (Auto) [place] % (Auto) Eos % (Auto) Baso % (Auto) Neut # (Auto) Lymph # (Auto) [place] # (Auto) Eos # (Auto) Baso # (Auto) Abs Immat Gran (auto) Absolute Nucleated RBC Nucleated RBC % (auto) PT INR Sodium 139 Potassium 3.7 D Chloride 107 Carbon Dioxide 23 Anion Gap 13 BUN 7 L Creatinine 0.63 Estim Creat Clear Calc 66.5 Estimated GFR > 60 POC Glucose Random Glucose 117 H Lactic Acid Calcium 8.8 Troponin I High Sens TSH Urine Color STRAW Urine Appearance CLEAR Urine pH 8.0 Ur Specific [place] <= 1.005 Urine Protein NEG Urine Glucose (UA) NEG Urine Ketones NEG Urine Blood NEG Urine Nitrite NEG Ur Leukocyte Esterase NEG Salicylates Urine Opiates Screen Not Detected Acetaminophen Ur Barbiturates Screen Not Detected Ur Phencyclidine Scrn Not Detected Ur Amphetamines Screen Not Detected U Benzodiazepines Scrn Not Detected Urine Cocaine Screen Not Detected U Marijuana (THC) Screen Not Detected Ethyl Alcohol 01/26/20 22:40 WBC RBC Hgb Hct MCV MCH MCHC RDW Plt Count MPV Immature Gran % (Auto) Neut % (Auto) Lymph % (Auto) [place] % (Auto) Eos % (Auto) Baso % (Auto) Neut # (Auto) Lymph # (Auto) [place] # (Auto) Eos # (Auto) Baso # (Auto) Abs Immat Gran (auto) Absolute Nucleated RBC Nucleated RBC % (auto) PT INR Sodium Potassium Chloride Carbon Dioxide Anion Gap BUN Creatinine Estim Creat Clear Calc Estimated GFR POC Glucose Random Glucose Lactic Acid Calcium Troponin I High Sens 4.8 TSH Urine Color Urine Appearance Urine pH Ur Specific [place] Urine Protein Urine Glucose (UA) Urine Ketones Urine Blood Urine Nitrite Ur Leukocyte Esterase Salicylates Urine Opiates Screen Acetaminophen Ur Barbiturates Screen Ur Phencyclidine Scrn Ur Amphetamines Screen U Benzodiazepines Scrn Urine Cocaine Screen U Marijuana (THC) Screen Ethyl Alcohol Assessment and Plan (1) Altered mental status: Status: Acute Hallucinations which could be likely secondary underlying dementia with psychotic features Eventhough patient has been prescribed Opiates/Benzodiazepines for years utox is negative. PCP to be contacted in the am regarding this and medication reconciliation Observation for now Behavioral Health assessment in the am (2) Hypokalemia: Status: Acute K of 3.0 which was supplemented by ED EKG changes now improving after supplementation of potassium Follow up repeat BMP levels radiation monitor for 24 hrs and repeat EKG in the am
--- NOTE | 2020-01-27 00:59 | PC.NURSE ---
Patient removed IV. New line placed.
--- NOTE | 2020-01-27 01:10 | PC.NURSE ---
RN called report to [facility] [place]. Plan to transfer soon.
--- NOTE | 2020-01-27 02:00 | PC.NURSE ---
Son updated via phone about pts admission. Plans to call after work tomorrow for update. Phone number for Juan Hauser is
[2020-01-27] MEDS: Enoxaparin Sodium 40 MG/0.4 ML SYRINGE SUBCUT (03:25)
--- NOTE | 2020-01-27 08:21 | P.CDIC_ITS ---
CDI Concurrent Query Service Date: 01/27/20 Documentation Clarification: Please clarify if you are treating a proba ble/suspected/likely or confirmed: Specifics: Malnutrition Mild, moderate or severe protein calorie malnutrition Please specify if known Provider Response: Malnutrition PLEASE DO NOT DELETE/MODIFY EXISTING CONTENT Additional information is needed in order to code to the highest accuracy and appropriate Severity of Illness (SOI). Please clarify the information noted below in your progress notes and discharge summary. Risk Factors/Clinical Indicators/Treatments H&P: Malnutrition lost weight recently, BMI 21.3, underweight, heavy smoker. CDS: Bettina [facility], [facility] Contact Number: [phone] Please Review the information above and exercise your independent professional judgment in responding to the query. If you concur, pleas document in the PROGRESS NOTES and DISCHARGE SUMMARY. If you do not agree with the query, please document in the query above. THIS QUERY IS PART OF THE PERMANENT MEDICAL RECORD
[2020-01-27] MEDS: Acetaminophen 325 MG TABLET 650 MG PO ×2 (08:31→21:44)
[2020-01-27] MEDS: 0.9 % Sodium Chloride Flush 3 ML SYRINGE 2 ML IVFLUSH ×3 (08:32→22:59)
[2020-01-27 09:04] LABS: Alanine Aminotransferase 8 U/L (0-31); Albumin Level 4.1 g/dL (3.5-5.0); Alkaline Phosphatase 95 U/L (39-117); Aspartate Amino Transferase 13 U/L (5-31); Bilirubin Direct < 0.2 mg/dL (0.0-0.5); Bilirubin Total 0.3 mg/dL (0.0-1.0); Total Protein 6.7 g/dL (6.5-8.0)
--- NOTE | 2020-01-27 09:47 | MHC.CM.PN ---
CM met with patient at the bedside who reports she is independent, lives with S.O. and has home O2 from [facility]. Patient does not have a HCP and declines filling one out today. Discussed discharge plan home with VNA services, S.O. will provide transport. Referral made. CM will continue to follow patient for discharge needs.
[2020-01-27 10:01] LABS: Folate 9.4 ng/mL (> or = 4.0); Vitamin B12 226 pg/mL (200-900)
[2020-01-27 10:24] LABS: Syphilis Screen Nonreactive (Nonreactive)
[2020-01-27] MEDS: Cyanocobalamin (Vitamin B-12) 1,000 MCG TABLET 1000 MCG PO (13:24)
--- NOTE | 2020-01-27 14:27 | MHC.CM.PN ---
[facility] is not able to take patient. Per patient CM referred to [facility] who is able to see patient for home nursing. CM will continue to follow for discharge needs.
--- NOTE | 2020-01-27 16:09 | P.CNNE_ITS ---
History of Present Illness Data of Consult Primary Care Provider: Alex Sahu MD [facility] Reason for consult: hallucinations 64 yo woman with h/o respiratory failure, and opioid use, who was brought to hospital with c/o hallucinations or seeing things that were not there. She was unable to provide any menaingful history. It was not clear if she had been using any illicit drug. This change in mental status was apparently new. THere was no documentation of a seizure d/o, or head injury, or exposure to any new med. Review of Systems Constitutional: Constitutional: Denies frequent falls and Denies headache(s) ENT: Denies headache(s) Neurologic: Reports behavioral changes, Reports confusion, Denies frequent falls, Denies headache(s), Reports memory loss and Reports other Psychiatric: Psychiatric: Reports behavioral changes, Reports confusion and Reports memory loss PMF Past Medical History Medical History Anxiety COPD (chronic obstructive pulmonary disease) Hyperlipidemia Hypertension Opiate abuse, continuous Functional capacity: independent ambulation Family History Family history: reviewed and not pertinent Social History Social History Alcohol intake: never Smoking Status: Current every day smoker Tobacco Type: Cigarette Smoked in Last 30 Days: Yes Patient Interested in Nicotine Replacement: No Patient Given Instructions on How to Stop Smoking: No Second Hand Smoke Exposure: No Use of substances other than those prescribed or required for medical reasons: No Advance Directives: No Advance Directives Information Provided: Yes Advance Directives on File: No service: No Current occupational status: unemployed Meds Allergies Allergy/AdvReac Type Severity Reaction Status Date / Time No Known Allergies Allergy Unverified 01/09/20 15:37 [No Known Allergies*] Physical Exam Vital Signs and I&O and Narrative: Vital Signs and I&O: Vital Signs Temp 98.0 F 01/27/20 12:00 Pulse 70 01/27/20 12:00 Resp 18 01/27/20 12:00 BP 142/72 H 01/27/20 12:00 Pulse Ox 98 01/27/20 12:00 Intake & Output 01/26/20 01/27/20 01/27/20 18:59 06:59 18:59 Weight 49.579 kg 50.9 kg Other: Meal Refused Yes Number of Unmeas ured Voids 3 Urine Bathroom Body Mass Index 20.5 GENERAL APPEARANCE: normal, in no acute distress. HEAD: normocephalic, atraumatic. EYES: sclera non-icteric, conjunctiva clear. EARS: auditory canal clear, tympanic membrane intact, clear. NOSE: no lesions. ORAL CAVITY: gums normal, mucosa moist, no lesions. THROAT: clear. NECK/THYROID: no cervical lymphadenopathy. SKIN: no rashes, no significant birthmarks. HEART: S1, S2 normal, no murmurs. LUNGS: clear anteriorly and posteriorly. CHEST: no gross rib deformity, clear to auscultation. EXTREMITIES: no edema. Mental status examination: ALert and awake with normal sp speech, fluency, and comprehension. No confusion about time and remembering what she ate in last 24 hours. Cranial Nerve examination: Pupils are equal, round and reactive to light. Ext ernal ocular muscles are intact. Visual vega are full. Face is symmetrical. Facial sensations are normal. Tongue is midline. Palate elevates symmetrically. Shoulder shrugging is normal. Hearing to bedside conversation is normal. Motor examination: DTrs are absent Cerebellar examination: Finger to nose is normal. Gait: Within normal limits. Speech: Normal. Extrapyramidal system: Within normal limits. Involuntary movements: None. Const: General: confusion Orientation/consciousness: confusion Neuro: General: confusion Results Labs CBC & Chem 7: 01/26/20 18:11 01/26/20 22:40 Labs: Short CBC 01/26/20 Range/Units 18:11 WBC 10.2 (4.8-10.8) X10*3/uL Hgb 13.3 (12.0-16.0) g/dl Hct 39.9 (37-47) % Plt Count 332 (160-400) X10*3/uL BMP 01/26/20 01/26/20 18:11 22:40 Sodium 139 139 Potassium 3.0 L 3.7 D Chloride 107 107 Carbon Dioxide 24 23 BUN 9 7 L Creatinine 0.64 0.63 Calcium 9.2 8.8 Liver Function 01/26/20 Range/Units 22:40 Total Bilirubin 0.3 (0.0-1.0) mg/dL Direct Bilirubin < 0.2 (0.0-0.5) mg/dL AST 13 (5-31) U/L ALT 8 (0-31) U/L Alkaline Phosphatase 95 (39-117) U/L Albumin 4.1 (3.5-5.0) g/dL Urine 01/26/20 Range/Units 21:44 Urine Color STRAW Urine Appearance CLEAR Urine pH 8.0 (5.0-8.0) Ur Specific [place] <= 1.005 (1.005-1.025) Urine Protein NEG (NEG-TRACE) MG/DL Urine Glucose (UA) NEG (NEG) MG/DL CT brain: no sig pathology Assessment and Plan (1) Altered mental status: Qualifiers: Altered mental status type: disorientation Qualified Code(s): R41.0 - Disorientation, unspecified Status: Acute Impression: unclear history of visual hallucinations rec: a: r/o illicit drug use b: if no other explanation is found, an MRI of brain w/o cont
[2020-01-28] VITALS (13 sets, daily range): BP systolic 121–148; BP diastolic 73–88; PULSE 61–83; RESP 17–22; TEMP 36.2–37; O2SAT 93–98
--- NOTE | 2020-01-28 | MR_ITS ---
MRI OF THE BRAIN WITHOUT IV CONTRAST INDICATION: Confusion. COMPARISON: Head CT 01/26/2020 TECHNIQUE: Multiplanar multisequence MR imaging of the brain was obtained without IV contrast. FINDINGS: There are extensive confluent T2 signal changes throughout the supratentorial white matter which exhibit a combination of reduced and facilitated diffusivity. Differential considerations include toxic or metabolic leukoencephalopathy, acute on chronic ischemic changes, or other active white matter processes. Clinical correlation advised. Postcontrast imaging may be helpful in further assessment. Arachnoid granulations within the right transverse and sigmoid sinus. There is no hydrocephalus, extra-axial surface collection, or herniation. The major flow voids at the skull base are preserved. There is no acute infarct on diffusion-weighted imaging. There is no intracranial hemorrhage on the gradient recalled echo acquisition. The midline structures are normal. The cerebellar tonsils are normally positioned. The cerebellum and brainstem are normal. The craniocervical junction is normal. Osseous marrow signal intensity is homogenous. The visualized soft tissues are unremarkable. IMPRESSION: There are extensive confluent T2 signal changes throughout the supratentorial white matter which exhibit a combination of reduced and facilitated diffusivity. Differential considerations include an acute toxic or metabolic leukoencephalopathy, acute on chronic ischemic changes, or other active white matter processes. Clinical correlation advised. Postcontrast imaging may be helpful in further assessment.
--- NOTE | 2020-01-28 | MR_ITS ---
MRI BRAIN WITH IV CONTRAST CLINICAL INFORMATION: Altered mental status and confusion. COMPARISON: Brain MRI performed earlier the same day. TECHNIQUE: Axial and coronal postcontrast series of the brain are obtained following the administration of 5 mL of Gadavist intravenous contrast without complication. FINDINGS/IMPRESSION: There is no pathologic enhancement intracranially. White matter signal changes are better seen on the previous noncontrast MRI of the brain. Please see that report for further details.
[2020-01-28] MEDS: Enoxaparin Sodium 40 MG/0.4 ML SYRINGE SUBCUT (02:01)
[2020-01-28 06:34] LABS: MANUAL DIFF FLAG NO
[2020-01-28 06:51] LABS: Basophils Percent Auto 0.3 % (0-2); Eosinophils Percent Auto 0.1 % (0-4); Hematocrit 41.8 % (37-47); Hemoglobin 14.2 g/dl (12.0-16.0); Imm Gran Abs Auto 0.04 X10*3/uL (0.00-0.03); Imm Gran Pct Auto 0.5 % (0.0-0.4); Lymphocytes Absolute Auto 1.4 X10*3/uL (1.2-4.9); Lymphocytes Percent Auto 16.6 % (20-40); Mean Corpuscular Hemoglobin 30.9 pg (27.0-33.0); Mean Corpuscular Volume 90.9 fL (80-98); Mean Platelet Volume 9.7 fL (9.4-12.3); Monocytes Absolute Auto 0.5 X10*3/uL (0.1-1.2); Monocytes Percent Auto 5.7 % (2-11); Neutrophils Absolute Auto 6.6 X10*3/uL (2.0-8.3); Neutrophils Percent Auto 76.8 % (45-73); Platelet Count 387 X10*3/uL (160-400); Red Cell Distribution Width 12.6 % (11.0-16.0); White Blood Count 8.6 X10*3/uL (4.8-10.8)
[2020-01-28 07:15] LABS: Anion Gap 15 (12-20); Blood Urea Nitrogen 9 mg/dL (9-16); Calcium 9.1 mg/dL (8.4-10.2); Carbon Dioxide 24 mmol/L (22-29); Chloride 103 mmol/L (96-108); Creatinine Clr Calc Pharmacy 73.2; Estimated Glomerular Filt Rate > 60; Glucose Random 94 mg/dL (60-115); Potassium 3.4 mmol/l (3.3-5.1); Sodium 139 mmol/L (135-145)
[2020-01-28] MEDS: Pravastatin Sodium 80 MG TABLET PO (07:48)
[2020-01-28] MEDS: 0.9 % Sodium Chloride Flush 3 ML SYRINGE 2 ML IVFLUSH (07:48)
[2020-01-28] MEDS: Cyanocobalamin (Vitamin B-12) 1,000 MCG TABLET 1000 MCG PO (07:48)
[2020-01-28] MEDS: gemfibroziL 600 MG TABLET PO (07:48)
[2020-01-28] MEDS: Fluticasone Propionate Nasal 16 GM SPRAY 2 SPRAY NOSTRIL-B (07:49)
[2020-01-28] MEDS: dilTIAZem HCL CD 300 MG CAP.ER.24H PO (07:53)
--- NOTE | 2020-01-28 17:34 | P.PNIM_ITS ---
Subjective Subjective Date of Service: 01/28/20 Interval History: the patient was seen and evaluated this morning Feels comfortable, denies any fever, chills or pain Mildly confused, not aggressive No reported overnight events Neurologic Neurologic: Reports confusion Psychiatric Psychiatric: Reports confusion Physical Exam Vital Signs and I&O and Narrative: Vital Signs and I&O: Vital Signs Temp 98.3 F 01/28/20 11:16 Pulse 74 01/28/20 15:12 Resp 18 01/28/20 15:12 BP 140/83 H 01/28/20 15:12 Pulse Ox 97 01/28/20 16:00 Intake & Output 01/27/20 01/28/20 01/28/20 18:59 06:59 18:59 Intake Total 120 / 180 60 / 180 120 / 120 Output Total 0 / 0 Balance 120 / 180 60 / 180 120 / 120 Urine Output (Aver age ml/kg/hr) 0.00 0.00 Intake: Intake, Oral [place] unt 120 / 180 60 / 180 120 / 120 Output: Output, Urine Am ount 0 / 0 Other: Meal Refused Yes Yes Lunch % Eaten 50% Dinner % Eaten 100% Number of Unmeas ured Voids 3 Urine Bathroom Stool Bathroom Body Mass Index 20.5 we Const: General: cooperative, comfortable and confusion Orientation/consciousness: confusion Neck: Neck: Yes normal visual inspection and Yes full ROM Resp: Effort & Inspection: normal respiratory effort Auscultation: crackles and rhonchi Cardio: Jugular venous distension: no JVD Heart sounds: S1 normal heart sound present and S2 normal heart sound present GI: Inspection: Yes normal to inspection Auscultation: normal bowel sounds Neuro: General: no focal motor deficits and confusion Objective Data Current Medications Generic Name Dose Route Start Last Admin Trade Name Freq PRN Reason Stop Dose Admin Acetaminophen 650 mg 01/27/20 08:08 01/27/20 21:44 Acetaminophen 325 Mg Tablet PO 650 mg Q6H PRN Administration pain Cyanocobalamin 1,000 mcg 01/27/20 12:15 01/28/20 07:48 Cyanocobalamin (Vitamin B-12) 1,000 Mcg Tablet PO 1,000 mcg DAILY ANA Administration Diltiazem HCl 300 mg 01/28/20 09:00 01/28/20 07:53 Diltiazem Hcl Cd 300 Mg Cap.Er.24h PO 300 mg DAILY ANA Administration Enoxaparin Sodium 40 mg 01/27/20 02:47 01/28/20 02:01 Enoxaparin Sodium 40 Mg/0.4 Ml Syringe SUBCUT 40 mg Q24H ANA Administration Fluticasone Propionate 2 spray 01/28/20 09:00 01/28/20 07:49 Fluticasone Propionate Nasal 16 Gm [place] NOSTRIL-B 2 spray DAILY ANA Administration Gemfibrozil 600 mg 01/28/20 07:30 01/28/20 07:48 Gemfibrozil 600 Mg Tablet PO 600 mg DAILY@30 ANA Administration Omeprazole 20 mg 01/28/20 06:30 01/28/20 05:31 Omeprazole 20 Mg/10 Ml Susp.Recon PO 20 mg DAILY@30 [facility] Administration Pravastatin Sodium 80 mg 01/28/20 09:00 01/28/20 07:48 Pravastatin Sodium 80 Mg Tablet PO 80 mg DAILY ANA Administration Sodium Chloride 2 ml 01/27/20 08:00 01/28/20 17:31 0.9 % Sodium Chloride Flush 3 Ml Syringe IVFLUSH Not Given QSHIFT [facility] Labs CBC & Chem 7: 01/28/20 05:24 01/28/20 05:24 Labs: Laboratory Results - last 24 hr 01/28/20 01/28/20 05:24 05:24 MCV 90.9 MCH 30.9 MCHC 34.0 RDW 12.6 Plt Count 387 MPV 9.7 Immature Gran % (Auto) 0.5 H Neut % (Auto) 76.8 H Lymph % (Auto) 16.6 L [place] % (Auto) 5.7 Eos % (Auto) 0.1 Baso % (Auto) 0.3 Neut # (Auto) 6.6 Lymph # (Auto) 1.4 [place] # (Auto) 0.5 Eos # (Auto) 0.0 Baso # (Auto) 0.0 Abs Immat Gran (auto) 0.04 H Absolute Nucleated RBC 0.000 Nucleated RBC % (auto) 0.0 Anion Gap 15 Estim Creat Clear Calc 73.2 Estimated GFR > 60 Random Glucose 94 Calcium 9.1 Microbiology Microbiology Results: Microbiology 01/26/20 18:38 Blood - Venous Blood Culture - Preliminary No growth after 24 hours. 01/26/20 18:11 Blood - Venous Blood Culture - Preliminary No growth after 24 hours. Assessment and Plan (1) Hypokalemia: Status: Acute (2) Altered mental status: Status: Acute Assessment and Plan: a 64 years old female with PMH of COPD on 2 L O2, rheumatoid arthritis, chronic pain, HTN, HLD who presents to the hospital with worsening mental status and behavioral changes. Altered mental status Patient is mainly confused, mentating well today and reported to be around her baseline Could be secondary to early onset dementia, medications Urine tox is negative for opioids or benzos CT head negative for any acute findings Neurology input appreciated, to check MRI next pending MRI To get psychiatry evaluation the morning Hypokalemia Potassium of 3 at admission Received supplement with fair response Continue to monitor HTN Continue Cardizem DVT PPX Lovenox
[2020-01-28] MEDS: Acetaminophen 325 MG TABLET 650 MG PO (19:56)
--- NOTE | 2020-01-28 21:56 | PC.NURSE ---
SITTER PULLED BY INVASIVE CARDIOLOGIST AT 2130. AT THIS TIME PATIENT IS CALM AND COOPERATIVE, CONTINUE
--- NOTE | 2020-01-28 21:57 | PC.NURSE ---
SITTER PULLED AT 2130 BY WOODEN BOX MAKER. PT CONTINUES TO BE CONFUSED BUT IS CALM AND COOPERATIVE. PT HAS CAMERA IN ROOM AND BED ALARM ON.
[2020-01-29] VITALS (14 sets, daily range): BP systolic 107–152; BP diastolic 60–89; PULSE 63–81; RESP 15–18; TEMP 35.7–36.5; O2SAT 92–98
--- NOTE | 2020-01-29 | FL_ITS ---
EXAMINATION: XR LUMBAR PUNCTURE CLINICAL INFORMATION: Altered mental status and confusion COMPARISON: None TECHNIQUE: Medical necessity was determined by the ordering physician was signed informed consent the patient. Procedure and risks including bleeding, infection and headache were discussed with the patient prior to the procedure as well. The patient was positioned in the prone position. The left back was prepped and draped in the usual sterile fashion. The skin and soft tissues were anesthetized with 1% lidocaine plain. Using fluoroscopic guidance and a 22-gauge spinal needle, left-sided interlaminar access at the L3-L4 level was obtained. FINDINGS: Opening pressure did not appear elevated. 4 mL of clear CSF fluid was removed. Diagnostic specimen was sent as requested by the ordering physician. FLUOROSCOPY TIME: 0.6 min DOSE AREA PRODUCT: 2.3 mendez per centimeter squared. 2 saved fluoroscopic images. IMPRESSION: Fluoroscopy-guided lumbar puncture.
--- NOTE | 2020-01-29 | CT_ITS ---
EXAMINATION: CT ANGIOGRAM HEAD CLINICAL INFORMATION: Vasculitis. COMPARISON: Brain MRI from 01/28/2020. CT head from 01/26/2020. TECHNIQUE: Initial noncontrast egg producer imaging of the head was performed. Comparison is made with prior noncontrast head CT. Test bolus sequences followed by intravenous administration 70 mL of Omnipaque 350. Helical imaging was performed in the axial plane from the skull base to the skull vertex. Delayed postcontrast imaging of the head was also performed. The data was processed at the chief nuclear medicine technologist's workstation for generation of MIP sequences. Angled MIPs and volume rendered reformatted images were also generated at an offline 3D workstation. Stenoses are assessed in accordance with NASCET criteria unless otherwise indicated. DLP: 1241 mGy-cm This CT examination was performed using dose optimization techniques as appropriate, variously including the following: *Automated exposure control. *Adjustment of mA and/or kV according to patient size (this includes techniques or standardized protocols for targeted exams where dose is matched to indication/reason for exam; i.e. extremities or head). *Use of iterative reconstruction technique. FINDINGS: CT Head: There is no evidence of acute intracranial hemorrhage or edematous territorial infarction. Confluent hypoattenuation in the periventricular and deep white matter. Montes-white matter differentiation is preserved. The ventricles are normal in size and configuration. No evidence for obstructive hydrocephalus. No abnormal mass effect or midline shift. No extra-axial fluid collections. No pathologic intra-axial enhancement or regional oligemia. No acute soft tissue or osseous abnormalities. The patient is edentulous. Moderate degenerative arthropathy of the right temporomandibular joint. Mild mucosal thickening of the paranasal sinuses. The mastoid air cells and middle ear cavities remain well aerated. Brain CTA: There is normal opacification of major intracranial arteries. No focal flow-limiting stenosis, discrete proximal large artery occlusion, or saccular intradural aneurysm. Intracranial Internal Carotid Arteries: Mild calcific atherosclerotic disease of the intracranial internal carotid arteries without occlusion or flow-limiting stenosis. Otherwise, normal contrast opacification of the petrous, cavernous, paraophthalmic, and supraclinoid segments of the internal carotid arteries without focal stenosis. Right Anterior Cerebral Artery: Normal A1 segment. Normal opacification of the distal segments of the RADHA. Left Anterior Cerebral Artery: Normal A1 segment. Normal opacification of the distal segments of the RADHA. Anterior Communicating Artery: Normal. Right Middle Cerebral Artery: Normal opacification of the M1 segment of the MCA without focal stenosis or occlusion. Normal arborization of the distal segments. Left Middle Cerebral Artery: Normal opacification of the M1 segment of the MCA without focal stenosis or occlusion. Normal arborization of the distal segments. Right Vertebral Artery: Normal opacification of the V4 segment. Normal opacification of the proximal segments of the posterior inferior cerebellar artery. Left Vertebral Artery: Normal opacification of the V4 segment. Normal opacification of the proximal segments of the posterior inferior cerebellar artery. Basilar Artery: Normal opacification without focal stenosis or occlusion. Normal appearance of the proximal superior cerebellar arteries. Right Posterior Cerebral Artery: Normal P1 segment. Normal opacification of the distal segments of the [employer]. Left Posterior Cerebral Artery: Normal P1 segment. Normal opacification of the distal segments of the [employer]. Normal opacification of the superior sagittal, straight, transverse, and sigmoid sinuses. IMPRESSION: 1. Redemonstrated is extensive underlying white matter changes. 2. No evidence of acute intracranial hemorrhage or edematous territorial infarction. 3. CTA of the head without proximal occlusion or flow-limiting stenosis. The intracranial arteries appear of normal caliber without CTA evidence of vasculitis. No abnormal intracranial enhancement.
[2020-01-29] MEDS: 0.9 % Sodium Chloride Flush 3 ML SYRINGE 2 ML IVFLUSH ×3 (00:31→18:17)
[2020-01-29] MEDS: Enoxaparin Sodium 40 MG/0.4 ML SYRINGE SUBCUT (04:01)
--- NOTE | 2020-01-29 06:26 | PC.NURSE ---
Patient starting to get agitated this morning, refusing medications and EKG.
[2020-01-29 06:37] LABS: MANUAL DIFF FLAG NO
[2020-01-29 06:51] LABS: Basophils Percent Auto 0.2 % (0-2); Eosinophils Percent Auto 0.1 % (0-4); Hematocrit 44.1 % (37-47); Hemoglobin 14.8 g/dl (12.0-16.0); Imm Gran Abs Auto 0.05 X10*3/uL (0.00-0.03); Imm Gran Pct Auto 0.4 % (0.0-0.4); Lymphocytes Absolute Auto 1.6 X10*3/uL (1.2-4.9); Lymphocytes Percent Auto 14.1 % (20-40); Mean Corpuscular HGB Conc 33.6 g/dl (31.0-35.0); Mean Corpuscular Hemoglobin 30.6 pg (27.0-33.0); Mean Corpuscular Volume 91.1 fL (80-98); Mean Platelet Volume 9.4 fL (9.4-12.3); Monocytes Absolute Auto 0.6 X10*3/uL (0.1-1.2); Monocytes Percent Auto 5.4 % (2-11); Neutrophils Absolute Auto 9.1 X10*3/uL (2.0-8.3); Neutrophils Percent Auto 79.8 % (45-73); Platelet Count 427 X10*3/uL (160-400); Red Blood Count 4.84 X10*6/uL (4.20-5.50); Red Cell Distribution Width 12.7 % (11.0-16.0); White Blood Count 11.4 X10*3/uL (4.8-10.8)
[2020-01-29 07:07] LABS: Anion Gap 18 (12-20); Blood Urea Nitrogen 13 mg/dL (9-16); Calcium 9.5 mg/dL (8.4-10.2); Carbon Dioxide 22 mmol/L (22-29); Chloride 101 mmol/L (96-108); Creatinine Clr Calc Pharmacy 68.9; Estimated Glomerular Filt Rate > 60; Glucose Random 81 mg/dL (60-115); Potassium 3.3 mmol/l (3.3-5.1); Sodium 138 mmol/L (135-145)
[2020-01-29] MEDS: dilTIAZem HCL CD 300 MG CAP.ER.24H PO (08:21)
[2020-01-29] MEDS: Fluticasone Propionate Nasal 16 GM SPRAY 2 SPRAY NOSTRIL-B (08:22)
[2020-01-29] MEDS: gemfibroziL 600 MG TABLET PO (08:23)
[2020-01-29] MEDS: Pravastatin Sodium 80 MG TABLET PO (08:23)
[2020-01-29] MEDS: Cyanocobalamin (Vitamin B-12) 1,000 MCG TABLET 1000 MCG PO (08:24)
--- NOTE | 2020-01-29 10:34 | PM.PSYCN ---
History of Present Illness Chief Complaint: ams Reason for Consult: Worsening mental status and capacity eval Requesting physician: Vinh Elizalde Sources of Information: patient interviewed and chart reviewed Additional Sources of Information: Collateral from boyfriend Bernardo and her son, Alden JENKINS Narrative: Patient is a 64 year old female with multiple chronic health issues. She is currently medically admitted with mental status change. Pt seen in room 485. She is awake alert and oriented to person only. She is unable to provide any history. She is calm answering questions, but all of her answers to questions are usually not related to anything asked. At one point patient was looking for her glasses, found a pair of socks and attempted to pull a sock over her head. Collateral from son and boyfriend is that she has no underlying psychotic or mood disorder. Son denies that she has dementia dx. And both report that at baseline she is completely oriented, appropriate and independent. Review of Systems Review of Systems Yes Unobtainable due to mental status [facility] Medical History Anxiety COPD (chronic obstructive pulmonary disease) Hyperlipidemia Hypertension Opiate abuse, continuous Diagnostics Vital Signs (24Hr): Vital Signs - 24 hr 01/28/20 11:16 01/28/20 11:53 01/28/20 15:12 Temperature 98.3 F Pulse Rate 75 74 Respiratory Rate 18 18 Blood Pressure 124/81 140/83 H Pulse Oximetry 96 98 98 01/28/20 16:00 01/28/20 20:00 01/28/20 23:24 Temperature 97.2 F Pulse Rate 61 79 Respiratory Rate 22 H 17 Blood Pressure 142/84 H Pulse Oximetry 97 93 95 01/29/20 00:00 01/29/20 03:23 01/29/20 04:00 Temperature 96.9 F Pulse Rate 81 Respiratory Rate 16 Blood Pressure 152/84 H Pulse Oximetry 95 96 96 01/29/20 07:56 01/29/20 08:21 Temperature 97.6 F Pulse Rate 66 81 Respiratory Rate 18 Blood Pressure 150/74 H 152/84 H Pulse Oximetry 98 Body Mass Index 20.5 Labs Results: 01/29/20 05:22 01/29/20 05:22 Labs: Laboratory Results - last 48 hr 01/28/20 01/28/20 01/29/20 05:24 05:24 05:22 WBC 8.6 11.4 H RBC 4.60 4.84 Hgb 14.2 14.8 Hct 41.8 44.1 MCV 90.9 91.1 MCH 30.9 30.6 MCHC 34.0 33.6 RDW 12.6 12.7 Plt Count 387 427 H MPV 9.7 9.4 Immature Gran % (Auto) 0.5 H 0.4 Neut % (Auto) 76.8 H 79.8 H Lymph % (Auto) 16.6 L 14.1 L [place] % (Auto) 5.7 5.4 Eos % (Auto) 0.1 0.1 Baso % (Auto) 0.3 0.2 Neut # (Auto) 6.6 9.1 H Lymph # (Auto) 1.4 1.6 [place] # (Auto) 0.5 0.6 Eos # (Auto) 0.0 0.0 Baso # (Auto) 0.0 0.0 Abs Immat Gran (auto) 0.04 H 0.05 H Absolute Nucleated RBC 0.000 0.000 Nucleated RBC % (auto) 0.0 0.0 Sodium 139 Potassium 3.4 Chloride 103 Carbon Dioxide 24 Anion Gap 15 BUN 9 Creatinine 0.63 Estim Creat Clear Calc 73.2 Estimated GFR > 60 Random Glucose 94 Calcium 9.1 01/29/20 05:22 WBC RBC Hgb Hct MCV MCH MCHC RDW Plt Count MPV Immature Gran % (Auto) Neut % (Auto) Lymph % (Auto) [place] % (Auto) Eos % (Auto) Baso % (Auto) Neut # (Auto) Lymph # (Auto) [place] # (Auto) Eos # (Auto) Baso # (Auto) Abs Immat Gran (auto) Absolute Nucleated RBC Nucleated RBC % (auto) Sodium 138 Potassium 3.3 Chloride 101 Carbon Dioxide 22 Anion Gap 18 BUN 13 Creatinine 0.67 Estim Creat Clear Calc 68.9 Estimated GFR > 60 Random Glucose 81 Calcium 9.5 Mental Status Exam Mental Status Exam Patient Appearance: Appropriate Patient Orientation: Person Level of Consciousness: Awake and Disoriented Patient Behavior: Confused Mood Description: Flat Affect Description: Flat Patient Cognition Impaired: Yes Ability to Follow Directions: Poor Speech Pattern: Clear and Difficulty Finding Words Memory Description: Immediate Impaired Thought Process: Disoriented and Confusion Thought Content: positive for Disorganized Judgement: Poor Medications Medications Current Medications Generic Name Dose Route Start Last Admin Trade Name Pakoq PRN Reason Stop Dose Admin Acetaminophen 650 mg 01/27/20 08:08 01/28/20 19:56 Acetaminophen 325 Mg Tablet PO 650 mg Q6H PRN Administration pain Cyanocobalamin 1,000 mcg 01/27/20 12:15 01/29/20 08:24 Cyanocobalamin (Vitamin B-12) 1,000 Mcg Tablet PO 1,000 mcg DAILY ANA Administration Diltiazem HCl 300 mg 01/28/20 09:00 01/29/20 08:21 Diltiazem Hcl Cd 300 Mg Cap.Er.24h PO 300 mg DAILY ANA Administration Enoxaparin Sodium 40 mg 01/27/20 02:47 01/29/20 04:01 Enoxaparin Sodium 40 Mg/0.4 Ml Syringe SUBCUT 40 mg Q24H ANA Administration Fluticasone Propionate 2 spray 01/28/20 09:00 01/29/20 08:22 Fluticasone Propionate Nasal 16 Gm [place] NOSTRIL-B 2 spray DAILY ANA Administration Gemfibrozil 600 mg 01/28/20 07:30 01/29/20 08:23 Gemfibrozil 600 Mg Tablet PO 600 mg DAILY@0730 ANA Administration Omeprazole 20 mg 01/28/20 06:30 01/29/20 06:09 Omeprazole 20 Mg/10 Ml Susp.Recon PO Not Given DAILY@0630 [facility] Pravastatin Sodium 80 mg 01/28/20 09:00 01/29/20 08:23 Pravastatin Sodium 80 Mg Tablet PO 80 mg DAILY ANA Administration Sodium Chloride 2 ml 01/27/20 08:00 01/29/20 08:23 0.9 % Sodium Chloride Flush 3 Ml Syringe IVFLUSH 2 ml QSHIFT ANA Administration Allergies Allergies Allergy/AdvReac Type Severity Reaction Status Date / Time No Known Allergies Allergy Unverified 01/09/20 15:37 [No Known Allergies*] Assessment & Plan Assessment & Plan (1) Altered mental status: Qualifiers: Altered mental status type: disorientation Qualified Code(s): R41.0 - Disorientation, unspecified Status: Acute Code(s): R41.82 - Altered mental status, unspecified Recommendations: At this time patient dose not have capacity to make any medical decisions based on confusion and disorientation--HCP should be involved Should continue with pt observer based on poor insight and judgment and somewhat bizzare behaviors Acute mental status change does not appear to be due to psychiatric condition labs for benzos and opiates sent as [facility] shows that patient has been consistently prescribed these for a few years and admission UDS was negative for all substances Reconsult if necessary Greater than 50% of the session was spent on counseling and/or coordination of care
[2020-01-29 11:20] LABS: HIV AB/AG Nonreactive (Nonreactive); HIV Num 1 0.27 S/CO (0.00-0.99)
--- NOTE | 2020-01-29 15:10 | HO.PM.IMPN ---
Subjective Subjective Date of Service: 01/29/20 Interval History: Seen and evaluated this morning Looks comfortable, confused, denies any fever or chills Denies headache, double vision No reported overnight events Review of Systems Review of Systems: Yes all other systems are reviewed and are negative Constitutional Constitutional: Reports no additional constitutional complaints Cardiovascular Cardiovascular: Reports no additional cardiovascular complaints Respiratory Respiratory: Reports no additional respiratory complaints Neurologic Neurologic: Reports confusion Psychiatric Psychiatric: Reports confusion Physical Exam Vital Signs and I&O and Narrative: Vital Signs and I&O: Vital Signs Temp 97.6 F 01/29/20 07:56 Pulse 68 01/29/20 10:56 Resp 18 01/29/20 10:56 BP 133/82 01/29/20 10:56 Pulse Ox 95 01/29/20 12:00 Intake & Output 01/28/20 01/29/20 01/29/20 18:59 06:59 18:59 Intake Total 120 / 120 240 / 240 Output Total Balance 120 / 119 -1 / 119 240 / 240 Intake: Intake, Oral Zaynab unt 120 / 120 240 / 240 Output: Output, Stool Am ount Other: Meal Refused Yes Yes NPO No Breakfast % Eate n 0% Lunch % Eaten 50% Number of Unmeas ured Voids 2 Urine Bathroom Urine Color Yellow Body Mass Index 20.5 Const: General: cooperative, comfortable and confusion Orientation/consciousness: confusion Neck: Neck: Yes normal visual inspection and Yes full ROM Resp: Effort & Inspection: normal respiratory effort Auscultation: clear to auscultation bilaterally Cardio: Jugular venous distension: no JVD Heart sounds: S1 normal heart sound present and S2 normal heart sound present GI: Inspection: Yes normal to inspection Auscultation: normal bowel sounds Skin: Lesions: no lesions Rashes: no rashes Neuro: General: moves all extremities, no focal motor deficits and confusion Extrem: General: Yes normal to inspection and Yes full ROM Objective Data Current Medications Generic Name Dose Route Start Last Admin Trade Name Freq PRN Reason Stop Dose Admin Acetaminophen 650 mg 01/27/20 08:08 01/28/20 19:56 Acetaminophen 325 Mg Tablet PO 650 mg Q6H PRN Administration pain Cyanocobalamin 1,000 mcg 01/27/20 12:15 01/29/20 08:24 Cyanocobalamin (Vitamin B-12) 1,000 Mcg Tablet PO 1,000 mcg DAILY ANA Administration Diltiazem HCl 300 mg 01/28/20 09:00 01/29/20 08:21 Diltiazem Hcl Cd 300 Mg Cap.Er.24h PO 300 mg DAILY ANA Administration Enoxaparin Sodium 40 mg 01/27/20 02:47 01/29/20 04:01 Enoxaparin Sodium 40 Mg/0.4 Ml Syringe SUBCUT 40 mg Q24H ANA Administration Fluticasone Propionate 2 spray 01/28/20 09:00 01/29/20 08:22 Fluticasone Propionate Nasal 16 Gm [place] NOSTRIL-B 2 spray DAILY ANA Administration Gemfibrozil 600 mg 01/28/20 07:30 01/29/20 08:23 Gemfibrozil 600 Mg Tablet PO 600 mg DAILY@30 ANA Administration Omeprazole 20 mg 01/28/20 06:30 01/29/20 06:09 Omeprazole 20 Mg/10 Ml Susp.Recon PO Not Given DAILY@30 [facility] Pravastatin Sodium 80 mg 01/28/20 09:00 01/29/20 08:23 Pravastatin Sodium 80 Mg Tablet PO 80 mg DAILY ANA Administration Sodium Chloride 2 ml 01/27/20 08:00 01/29/20 08:23 0.9 % Sodium Chloride Flush 3 Ml Syringe IVFLUSH 2 ml QSHIFT ANA Administration Labs CBC & Chem 7: 01/29/20 05:22 01/29/20 05:22 Labs: Laboratory Results - last 24 hr 01/29/20 01/29/20 01/29/20 05:22 05:22 10:14 MCV 91.1 MCH 30.6 MCHC 33.6 RDW 12.7 Plt Count 427 H MPV 9.4 Immature Gran % (Auto) 0.4 Neut % (Auto) 79.8 H Lymph % (Auto) 14.1 L [place] % (Auto) 5.4 Eos % (Auto) 0.1 Baso % (Auto) 0.2 Neut # (Auto) 9.1 H Lymph # (Auto) 1.6 [place] # (Auto) 0.6 Eos # (Auto) 0.0 Baso # (Auto) 0.0 Abs Immat Gran (auto) 0.05 H Absolute Nucleated RBC 0.000 Nucleated RBC % (auto) 0.0 Anion Gap 18 Estim Creat Clear Calc 68.9 Estimated GFR > 60 Random Glucose 81 Calcium 9.5 HIV 1&2 Ab/P24 Ag 4thGn Nonreactive Microbiology Microbiology Results: Microbiology 01/26/20 18:38 Blood - Venous Blood Culture - Preliminary No growth after 48 hours. 01/26/20 18:11 Blood - Venous Blood Culture - Preliminary No growth after 48 hours. Assessment and Plan (1) Hypokalemia: Status: Acute (2) Altered mental status: Status: Acute (3) Encephalopathy, metabolic: Status: Acute Assessment and Plan: a 64 years old female with PMH of COPD on 2 L O2, rheumatoid arthritis, chronic pain, HTN, HLD who presents to the hospital with worsening mental status and behavioral changes. acute metabolic encephalopathy Patient is still confused Could be secondary to early onset dementia, medications Urine tox is negative for opioids or benzos CT head negative for any acute findings MRI showed T2 signal suggesting leukoencephalopathy or ischemic changes Neurology input appreciated, to check Brain CTA & lumbar puncture psych input appreciated, does not have capacity, unlikely result of psychiatry condition Hypokalemia Potassium of 3 at admission Received supplement with fair response Continue to monitor HTN Continue Cardizem DVT PPX Lovenox
[2020-01-29] MEDS: iohexoL 350 MG/ML 100 ML INFUS..BTL IV (15:21)
[2020-01-29 16:49] LABS: Appearance CSF CLEAR
[2020-01-29 16:50] LABS: CSF Tube # 2
[2020-01-29 17:02] LABS: Glucose CSF 57 mg/dL; Total Protein CSF 27.4 mg/dL (15-45)
[2020-01-29 18:45] LABS: Appearance CSF CLEAR; CSF Tube # 1; CSF Volume 1.5 ML; Color CSF COLORLESS; Lymphocytes CSF 100 %; Red Blood Cell CSF 61 MM*3; White Blood Cell CSF 1 MM*3
[2020-01-30] VITALS (9 sets, daily range): BP systolic 128–174; BP diastolic 64–88; PULSE 73–88; RESP 18–20; TEMP 36.6–37.1; O2SAT 95–99
[2020-01-30] MEDS: 0.9 % Sodium Chloride Flush 3 ML SYRINGE 2 ML IVFLUSH ×3 (00:08→15:32)
[2020-01-30 06:31] LABS: MANUAL DIFF FLAG NO
[2020-01-30] MEDS: gemfibroziL 600 MG TABLET PO (06:34)
[2020-01-30 06:48] LABS: Basophils Percent Auto 0.3 % (0-2); Eosinophils Percent Auto 0.1 % (0-4); Hemoglobin 15.1 g/dl (12.0-16.0); Imm Gran Abs Auto 0.04 X10*3/uL (0.00-0.03); Imm Gran Pct Auto 0.4 % (0.0-0.4); Lymphocytes Absolute Auto 1.5 X10*3/uL (1.2-4.9); Lymphocytes Percent Auto 13.1 % (20-40); Mean Corpuscular HGB Conc 33.6 g/dl (31.0-35.0); Mean Corpuscular Hemoglobin 30.5 pg (27.0-33.0); Mean Corpuscular Volume 90.9 fL (80-98); Mean Platelet Volume 9.5 fL (9.4-12.3); Monocytes Absolute Auto 0.7 X10*3/uL (0.1-1.2); Monocytes Percent Auto 6.6 % (2-11); Neutrophils Absolute Auto 8.9 X10*3/uL (2.0-8.3); Neutrophils Percent Auto 79.5 % (45-73); Platelet Count 450 X10*3/uL (160-400); Red Blood Count 4.95 X10*6/uL (4.20-5.50); Red Cell Distribution Width 12.4 % (11.0-16.0); White Blood Count 11.2 X10*3/uL (4.8-10.8)
[2020-01-30 07:00] LABS: Anion Gap 18 (12-20); Blood Urea Nitrogen 16 mg/dL (9-16); Calcium 9.4 mg/dL (8.4-10.2); Carbon Dioxide 24 mmol/L (22-29); Chloride 102 mmol/L (96-108); Creatinine Clr Calc Pharmacy 66.8; Estimated Glomerular Filt Rate > 60; Glucose Random 89 mg/dL (60-115); Potassium 3.7 mmol/l (3.3-5.1); Sodium 140 mmol/L (135-145)
[2020-01-30] MEDS: dilTIAZem HCL CD 300 MG CAP.ER.24H PO (07:38)
[2020-01-30] MEDS: Cyanocobalamin (Vitamin B-12) 1,000 MCG TABLET 1000 MCG PO (07:38)
[2020-01-30 08:46] LABS: Lyme Abs Screen <0.90 index
--- NOTE | 2020-01-30 13:40 | MHC.CM.PN ---
CM spoke with HCP hector Maguire to get choices of STR. Ting states they will be taking patient home with 24 hr care. Referrals made to [facility] for [facility] services and broad search for VNA services. Discharge home tomorrow once services are in place.
--- NOTE | 2020-01-30 14:37 | MHC.CM.PN ---
Patient has been accepted by [facility] for VNA services. CM spoke with hector Maguire and is aware. CM will continue to follow patient for discharge needs.
--- NOTE | 2020-01-30 15:53 | P.PNIM_ITS ---
Subjective Subjective Date of Service: 01/30/20 Interval History: the patient was seen and evaluated this morning Laying in bed, feels comfortable Denies any fever, chills or shortness of breath No headache, double vision next Lyme patient still confused, not aware of the procedures were doing or why she is in the hospital No reported other overnight events. Review of Systems Review of Systems: Yes all other systems are reviewed and are negative Constitutional Constitutional: Reports no additional constitutional complaints Physical Exam Vital Signs and I&O and Narrative: Vital Signs and I&O: Vital Signs Temp 97.8 F 01/30/20 12:38 Pulse 73 01/30/20 12:38 Resp 18 01/30/20 12:38 BP 140/73 H 01/30/20 12:38 Pulse Ox 96 01/30/20 12:38 Intake & Output 01/29/20 01/30/20 01/30/20 18:59 06:59 18:59 Intake Total 240 / 840 600 / 840 480 / 480 Output Total 150 / 150 3 / 3 Balance 240 / 690 450 / 690 477 / 477 Urine Output (Aver age ml/kg/hr) 0.25 0.00 Intake: Intake, Oral Zaynab unt 240 / 840 600 / 840 480 / 480 Intake, Oral Sup plement Amount 0 / 0 Intake, Tube Fee ding Amount 0 / 0 Output: Output, Urine Am ount 150 / 150 2 / 2 Output, Stool Am ount 1 / 1 Other: Meal Refused Yes No NPO No Breakfast % Eate n 0% 50% Morning Snack % Eaten 50 Lunch % Eaten 25% Afternoon Snack % Eaten 25 Number of Incont inent Voids 0 Number of Unmeas ured Voids 2 Number of Bowel Movements 1 Urine Bathroom Urine Color Pale Yellow Last Bowel Movem ent 01/30/20 Stool Bathroom Stool Color Green Stool Consistenc y Watery Body Mass Index 20.5 Constitutional : Alert, disoriented count, comfortable, not in distress Neck : Normal inspection, Supple Cardiovascular : RRR, S1 S2, no lower extremity edema Respiratory : Good bilateral air entry, no crackles, wheezes or rhonchi Gastrointestinal: soft, lax, Normal bowel sounds, Non tender Skin : Warm/Dry, No rash Neurological : Alert disoriented, No focal deficit, Objective Data Current Medications Generic Name Dose Route Start Last Admin Trade Name Freq PRN Reason Stop Dose Admin Acetaminophen 650 mg 01/27/20 08:08 01/28/20 19:56 Acetaminophen 325 Mg Tablet PO 650 mg Q6H PRN Administration pain Cyanocobalamin 1,000 mcg 01/27/20 12:15 01/30/20 07:38 Cyanocobalamin (Vitamin B-12) 1,000 Mcg Tablet PO 1,000 mcg DAILY ANA Administration Diltiazem HCl 300 mg 01/28/20 09:00 01/30/20 07:38 Diltiazem Hcl Cd 300 Mg Cap.Er.24h PO 300 mg DAILY ANA Administration Enoxaparin Sodium 40 mg 01/27/20 02:47 01/30/20 01:52 Enoxaparin Sodium 40 Mg/0.4 Ml Syringe SUBCUT Not Given Q24H [facility] Fluticasone Propionate 2 spray 01/28/20 09:00 01/30/20 07:39 Fluticasone Propionate Nasal 16 Gm [place] NOSTRIL-B Not Given DAILY [facility] Gemfibrozil 600 mg 01/28/20 07:30 01/30/20 06:34 Gemfibrozil 600 Mg Tablet PO 600 mg DAILY@30 ANA Administration Omeprazole 20 mg 01/28/20 06:30 01/30/20 05:35 Omeprazole 20 Mg/10 Ml Susp.Recon PO 20 mg DAILY@0630 ANA Administration Pravastatin Sodium 80 mg 01/28/20 09:00 01/30/20 07:43 Pravastatin Sodium 80 Mg Tablet PO Not Given DAILY [facility] Sodium Chloride 2 ml 01/27/20 08:00 01/30/20 15:32 0.9 % Sodium Chloride Flush 3 Ml Syringe IVFLUSH 2 ml QSHIFT ANA Administration Labs CBC & Chem 7: 01/30/20 05:45 01/30/20 05:45 Labs: Laboratory Results - last 24 hr 01/29/20 01/29/20 01/29/20 10:14 15:45 15:45 MCV MCH MCHC RDW Plt Count MPV Immature Gran % (Auto) Neut % (Auto) Lymph % (Auto) [place] % (Auto) Eos % (Auto) Baso % (Auto) Lymph # (Auto) [place] # (Auto) Eos # (Auto) Baso # (Auto) Abs Immat Gran (auto) Absolute Neuts (auto) Absolute Nucleated RBC Nucleated RBC % (auto) Anion Gap Estim Creat Clear Calc Estimated GFR Random Glucose Calcium CSF Tube Number 2 1 CSF Volume 1.5 CSF Appearance CLEAR CLEAR CSF Color COLORLESS CSF WBC 1 CSF RBC 61 CSF Lymphocytes 100 CSF Glucose 57 CSF Total Protein 27.4 CSF VDRL Cancelled Lyme Antibody Value <0.90 01/30/20 01/30/20 05:45 05:45 MCV 90.9 MCH 30.5 MCHC 33.6 RDW 12.4 Plt Count 450 H MPV 9.5 Immature Gran % (Auto) 0.4 Neut % (Auto) 79.5 H Lymph % (Auto) 13.1 L [place] % (Auto) 6.6 Eos % (Auto) 0.1 Baso % (Auto) 0.3 Lymph # (Auto) 1.5 [place] # (Auto) 0.7 Eos # (Auto) 0.0 Baso # (Auto) 0.0 Abs Immat Gran (auto) 0.04 H Absolute Neuts (auto) 8.9 H Absolute Nucleated RBC 0.000 Nucleated RBC % (auto) 0.0 Anion Gap 18 Estim Creat Clear Calc 66.8 Estimated GFR > 60 Random Glucose 89 Calcium 9.4 CSF Tube Number CSF Volume CSF Appearance CSF Color CSF WBC CSF RBC CSF Lymphocytes CSF Glucose CSF Total Protein CSF VDRL Lyme Antibody Value Microbiology Microbiology Results: Microbiology 01/29/20 15:45 Cerebrospinal Fluid Gram Stain - Final 01/29/20 15:45 Cerebrospinal Fluid CSF Examination - Final 01/29/20 15:45 Cerebrospinal Fluid Gross Specimen Examination - Final 01/29/20 15:45 Cerebrospinal Fluid CSF Culture - Preliminary No growth after 1 day 01/26/20 18:38 Blood - Venous Blood Culture - Preliminary No growth after 48 hours. 01/26/20 18:11 Blood - Venous Blood Culture - Preliminary No growth after 48 hours. Assessment and Plan (1) Encephalopathy, metabolic: Status: Acute (2) Leukoencephalopathy: Status: Acute (3) Hypokalemia: Status: Acute Assessment and Plan: a 64 years old female with PMH of COPD on 2 L O2, rheumatoid arthritis, chronic pain, HTN, HLD who presents to the hospital with worsening mental status and behavioral changes. acute metabolic encephalopathy Leukoencephalopathy Patient is still confused, seems to be her baseline likely result of white matter disease Urine tox is negative for opioids or benzos CT head negative for any acute findings MRI showed T2 signal suggesting leukoencephalopathy or ischemic changes CTA showing no vasculitis, confirm white matter disease Lumbar puncture studies within normal CSF, negative g stain Negative HIV and Lyme disease psych input appreciated, does not have capacity, unlikely result of psychiatry condition Neurology input appreciated, seems to be chronic, no treatment at this point, to follow-up as outpatient for genetic testing Hypokalemia Potassium of 3 at admission Received supplement with fair response Continue to monitor HTN Continue Cardizem DVT PPX Lovenox
[2020-01-30] MEDS: Acetaminophen 325 MG TABLET 650 MG PO (19:32)
[2020-01-31] VITALS: BP 143/75; PULSE 78; RESP 16; TEMP 36.4; O2SAT 97
[2020-01-31] MEDS: 0.9 % Sodium Chloride Flush 3 ML SYRINGE 2 ML IVFLUSH ×2 (00:13→08:02)
[2020-01-31] MEDS: Acetaminophen 325 MG TABLET 650 MG PO (01:50)
[2020-01-31 04:00] VITALS: BP 144/72; PULSE 83; RESP 18; TEMP 36.3; O2SAT 98
[2020-01-31] MEDS: Enoxaparin Sodium 40 MG/0.4 ML SYRINGE SUBCUT (04:25)
[2020-01-31] MEDS: gemfibroziL 600 MG TABLET PO (06:39)
[2020-01-31 08:00] VITALS: BP 141/79; PULSE 81; RESP 18; TEMP 36.8; O2SAT 96; O2SAT 99
[2020-01-31] MEDS: Cyanocobalamin (Vitamin B-12) 1,000 MCG TABLET 1000 MCG PO (08:02)
[2020-01-31] MEDS: Pravastatin Sodium 80 MG TABLET PO (08:02)
[2020-01-31] MEDS: dilTIAZem HCL CD 300 MG CAP.ER.24H PO (08:02)
[2020-01-31 11:34] VITALS: BP 144/80; PULSE 79; RESP 18; TEMP 36.2; O2SAT 94
--- NOTE | 2020-01-31 12:04 | MHC.CM.PN ---
Patient will be discharged home today with services from [facility]. Family will provide transport.
--- NOTE | 2020-01-31 14:41 | P.F2F_ITS ---
Service Date Service Date: 01/31/20 Reasons for Services Reason for intermediate: teach disease management Reason for physical therapy: home safety and mobility and therapeutic exercises overseeing care: Alex Sahu Homebound: Leaving the home is medically contraindicated at this time without the asist of a device and/or another person due th the listed conditions above and below. Certification: Based on the above findings, I certify that this patient is confined to the home and needs intermittent intermediate care, physical therapy and/or speech therapy, or continues to need occupational therapy. The patient is under my care, and I have initiated the establishment of the plan of care. The patient will be followed by a physician who will periodically review the plan of care.
--- NOTE | 2020-01-31 16:29 | PM.DS ---
DS: Providers Provider Date of admission: 01/29/20 11:00 Primary care physician: Alex Sahu MD Consults: 01/27/20 06:24 Consult to Physician Routine Consulting Provider: [facility] Reason for consultation: Dementia with psychotic features Has provider been notified: No 01/27/20 14:43 Consult to Neurology Routine Consulting Provider: Micha Jackson Reason for consultation: confusion 01/28/20 17:48 Consult to Psychiatry Routine Consulting Provider: Jf Ro Reason for consultation: evaluation for ongoing worsening mental status, hallucination, behavioral Has provider been notified: No DS: Diagnosis Discharge Diagnosis (1) Encephalopathy, metabolic: Status: Acute (2) Leukoencephalopathy: Status: Acute (3) Hypokalemia: Status: Acute (4) Altered mental status: Status: Acute DS: Summary Hospital Course Hospital Course: admission note HPI 64 y/o female with an extensive PMHX who presented from home due to hallucinations. Per history provided by the patient, for the past several days has been having on and off episodes of hallucinations where she see things that are not there . Patient is not very reliable when giving the medical hx, is alert and oriented to name and age but not place. Upon reviewing the medical records is noted that patient had a previous admission 2 years ago due to acute respiratory failure due to opiate/benzodiazepine overdose. Medications from the prescription monitoring program was checked by ED which shows that patient has continued receiving benzodiazepines and opiates since, prescribed by her PCP. Unknown if patient has a hx of underlying dementia. On presentation to the ED patient's vitals are noted to be stable, no evidence of fever. Sinus bradycardia of 56 but asymptomatic. Utox done is cleared for benzos or opiates. Initial labs showed K of 3.0. EKG done on presentation showed T wave inversion in precordial leads. KCL was replaced by ED and repeat EKG shows now improvement on EKG changes. Decision for admission given. --------- Hospital course The patient was admitted to the hospital for evaluation of mental status changes and increased confusion. It was thought to be a result of multiple medications at the beginning including oxycodone and Ativan. Urine tox screen came back negative though. A CT scan of the brain was negative for any acute findings. 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 Neurology evaluated the patient and recommended lumbar puncture and CTA of the brain. The CTA did not show any vasculitis but confirmed the white matter disease. CSF studies were within normal not suggestive of any infection or inflammatory process. Dr. Jackson from Neurology suggested genetic disease as a possibility for her current presentation given the fact that her mother had a early onset dementia and in her 60s. He would like to evaluate her later in the office to do more genetic testing. She was tested negative for HIV and Lyme disease. Rest of CSF studies still pending though. To be seen in neurology clinic on February 10. Evaluated by psychiatry team who believe the patient does not have capacity to take decisions about her care at this point. Status at Discharge Functional status at discharge: independent ambulation Time Spent with Patient Time attestation: Total time spent providing and/or coordinating discharge services: Time spent: Greater than 30 minutes Physical Exam Vital Signs and I&O and Narrative: Vital Signs and I&O: Vital Signs Temp 97.2 F 01/31/20 11:34 Pulse 79 01/31/20 11:34 Resp 18 01/31/20 11:34 BP 144/80 H 01/31/20 11:34 Pulse Ox 94 01/31/20 11:34 Intake & Output 01/30/20 01/31/20 01/31/20 18:59 06:59 18:59 Intake Total 480 / 660 180 / 660 Output Total 3 / 3 Balance 477 / 657 180 / 657 Urine Output (Aver age ml/kg/hr) 0.00 0.00 0.00 Intake: Intake, Oral [place] unt 480 / 660 180 / 660 Intake, Oral Sup plement Amount 0 / 0 Intake, Tube Fee ding Amount 0 / 0 Output: Output, Urine Am ount 2 / 2 Output, Stool Am ount 1 / 1 Other: Meal Refused No Yes Breakfast % Eate n 50% Morning Snack % Eaten 50 Lunch % Eaten 25% Afternoon Snack % Eaten 25 Number of Incont inent Voids 0 Number of Unmeas ured Voids 1 Number of Bowel Movements 1 Urine Bathroom Bathroom Urine Color Pale Yellow Yellow Last Bowel Movem ent 01/30/20 Stool Bathroom Stool Color Green Stool Consistenc y Watery Body Mass Index 20.5 Constitutional : Alert, Disoriented, confused, comfortable, not in distress Neck : Normal inspection, Supple Cardiovascular : RRR, S1 S2, no lower extremity edema Respiratory : Good bilateral air entry, no crackles, wheezes or rhonchi Gastrointestinal: soft, lax, Normal bowel sounds, Non tender Skin : Warm/Dry, No rash Neurological : Alert & disoriented, No focal deficit DS: Data Data Completed and Pending Labs on day of discharge: Preliminary micro results at discharge 01/29/20 15:45 CSF Culture - Preliminary Cerebrospinal Fluid No growth after 2 days 01/26/20 18:38 Blood Culture - Preliminary Blood - Venous No growth after 48 hours. 01/26/20 18:11 Blood Culture - Preliminary Blood - Venous No growth after 48 hours. Additional Comments Additional comments: MRI IMPRESSION: There are extensive confluent T2 signal changes throughout the supratentorial white matter which exhibit a combination of reduced and facilitated diffusivity. Differential considerations include an acute toxic or metabolic leukoencephalopathy, acute on chronic ischemic changes, or other active white matter processes. Clinical correlation advised. Postcontrast imaging may be helpful in further assessment. CTA head IMPRESSION: 1. Redemonstrated is extensive underlying white matter changes. 2. No evidence of acute intracranial hemorrhage or edematous territorial infarction. 3. CTA of the head without proximal occlusion or flow-limiting stenosis. The intracranial arteries appear of normal caliber without CTA evidence of vasculitis. No abnormal intracranial enhancement. Head CT IMPRESSION: No acute intracranial pathology. Abdomen CT IMPRESSION: Diverticulosis of the colon. There is wall thickening of the sigmoid colon probably related to diverticular disease. There is wall thickening of the proximal stomach. This may be artifactual due to underdistention. Clinical correlation recommended. Bilateral renal cysts. Probable small bilateral renal stones. Chst CT IMPRESSION: No acute abnormality of the chest. There is moderate emphysematous change of lungs. Discharge Plan Discharge Patient Disposition: Home Health Service Referrals: [facility] [place] [Outside] Alex Sahu MD [Primary Care Provider] - Discharge Medications: Continued diltiazem HCl 300 mg Capsule,Extended Release 24 Hr 300 mg PO DAILY RF: 0 gemfibrozil 600 mg Tablet 600 mg PO DAILY RF: 0 clotrimazole-betamethasone 1-0.05 % Cream 1 applic TOPICAL BID RF: 0 albuterol sulfate [Ventolin HFA] 90 mcg/actuation Hfa Aerosol Inhaler 2 puff INHALATION QID PRN (Reason: Shortness Of Breath Or Wheezing) RF: 0 fluoxetine 20 mg Capsule 20 mg PO DAILY RF: 0 fluticasone propionate 50 mcg/actuation [place],Suspension 2 spray INTRANASAL DAILY RF: 0 pravastatin 80 mg Tablet 80 mg PO DAILY RF: 0 nitroglycerin 0.4 mg Tablet, Sublingual 0.4 mg SUBLINGUAL Q5M PRN (Reason: Angina) RF: 0 omeprazole 20 mg Capsule,Delayed Release(Dr/Ec) 20 mg PO DAILY RF: 0 naloxone 4 mg/actuation [place],Non-Aerosol 4 mg INTRANASAL Q2M PRN (Reason: overdose) RF: 0 Changed clonazepam 0.5 mg Tablet 0.5 mg PO TID PRN (Reason: anxiety) Qty: 0 RF: 0 oxycodone 15 mg Tablet 7.5 mg PO BID-TID PRN (Reason: Pain) Qty: 0 RF: 0 Discharge Orders: Discharge Order (Routine); Ordered 01/31/20 Ordered By: Vinh Elizalde Diet: advance to your usual diet Activity on Discharge: As tolerated Stand Alone Forms: Community Support Discharge Date/Time: 01/31/20 12:36 Visit Report Forms: Patient Portal Discharge page Care Plan Goals: read below Health Concerns: REad below Plan of Treatment: you were admitted to the hospital for evaluation of changes in behavior and mentation. You were evaluated by brain images of CT scan, CTA and brain MRI which were consistent with abnormality in the white matter if your brain a condition called leukoencephalopathy . . You were evaluated by neurologist as your blood test and cerebral spinal fluid came back negative for any infection or inflammatory process. cut down on the use of Ativan and oxycodone To follow-up as outpatient with Dr. Jackson from Neurology on February 10
[2020-02-02 17:01] LABS: VDRL Qualitative CSF Nonreactive (Nonreactive)
[2020-02-03 18:27] LABS: Lyme (B. burgdorferi) PCR NOT DETECTED (NOT DETECTED)
== END 2020-01-31 12:36 | disposition home health service (06) | DRG 72 ==
LOC: HO.ED 01-27 02:43 → HO.IMC 01-27 02:50
PROVIDERS: Internal Medicine; Nurse Practitioner Family; Admitting Provider Internal Medicine; PCP Internal Medicine; Visit Provider Student in an Organized Health Care Education/Training Program
DX: G93.41 Metabolic encephalopathy (principal); F41.9 Anxiety disorder, unspecified; I10 Essential (primary) hypertension; E87.6 Hypokalemia; J44.9 Chronic obstructive pulmonary disease, unspecified; F17.210 Nicotine dependence, cigarettes, uncomplicated; Z71.6 Tobacco abuse counseling; Z79.51 Long term (current) use of inhaled steroids; Z79.899 Other long term (current) drug therapy
CPT/HCPCS: 36415; 62328; 70470; 70496; 70551; 70552; 71260; 74176; 80048; 80076; 80307; 80320; 81003; 82607; 82746; 82945; 82947; 83605; 84157; 84443; 84484; 85025; 85610; 86592; 86618; 86780; 87015; 87040; 87070; 87205; 87389; 87476; 89051; 93005; 93010; 96372; 99219; 99284; 99285; 99291; G0480; J1650